=== PATIENT | female | born 1990 | race Hispanic/Latino ===

== ENCOUNTER 2019-05-11 03:02 | Inpatient (IN) | payer OTHER, SELFPAY ==
[2019-05-11] MEDS ORDERED: Ondansetron PF 4 MG/2 ML Vial IVP PRN ×2 (03:39→04:37)
[2019-05-11] MEDS ORDERED: Acetaminophen 500 MG TAB PO PRN (03:39)
[2019-05-11] MEDS ORDERED: hydrALAZINE 20 MG/ML VIAL SLOW IVP PRN ×2 (03:39)
[2019-05-11] MEDS ORDERED: Promethazine HCl 25 MG/ML VIAL IM PRN ×2 (03:39→04:37)
[2019-05-11] MEDS ORDERED: Butorphanol Tartrate 1 MG/ML VIAL SLOW IVP PRN (03:39)
[2019-05-11 03:40] VITALS: BMI 28.9
[2019-05-11 03:57] LABS: Hemoglobin 12.7 g/dL (12.0-16.0); Mean Corpuscular Volume 91.1 fL (78.0-98.0); Mean Platelet Volume 9.1 fL (7.4-10.4); Platelet Count 182 thou/uL (130-400); RBC Distribution Width 18.3 % (11.5-14.5); White Blood Cell (WBC) Count 12.6 thou/uL (4.8-10.8)
[2019-05-11] MEDS ORDERED: Fentanyl 4 mcg/Bup 0.1% Cadd 100 ML ONE (04:01)
[2019-05-11] MEDS ORDERED: NS / Oxytocin 40 units/1000ml 1,000 ML IV PRN (04:25)
[2019-05-11] MEDS ORDERED: Ibuprofen 800 MG TAB PO PRN (04:25)
[2019-05-11] MEDS ORDERED: Lidocaine 1% (PF) 30 ML VIAL SC PRN (04:25)
[2019-05-11] MEDS ORDERED: Lidocaine 1% (PF) 30 ML VIAL ONE (04:28)
[2019-05-11] MEDS ORDERED: NS / Oxytocin 40 units/1000ml 1,000 ML ONE (04:28)
[2019-05-11] MEDS ORDERED: Methylergonovine 0.2 MG/ML VIAL ONE ×2 (04:29→05:25)
[2019-05-11 04:37] LABS: HBSAg Index 0.24 S/CO (0-0.99); Hep B Surf Ag Non-Reactive S/CO (NonReactive)
[2019-05-11] MEDS ORDERED: Acetaminophen 325 MG TAB PO PRN (04:37)
[2019-05-11] MEDS ORDERED: Naloxone HCl 0.4 mg/ml Vial IVP PRN ×2 (04:37)
[2019-05-11] MEDS ORDERED: Lactated Ringer's 500 ML IV PRN (04:37)
[2019-05-11] MEDS ORDERED: ePHEDrine/0.9% NaCl/PF SYRINGE 50 mg/10 ml SLOW IVP PRN (04:37)
[2019-05-11] MEDS ORDERED: diphenhydrAMINE 50 MG/ML VIAL IVP PRN (04:37)
[2019-05-11] MEDS ORDERED: Fentanyl 4 mcg/Bupivacaine 0.1% Cassette 100 ML EPIDURAL SCH (04:45)
[2019-05-11] MEDS ORDERED: Communication Order-Pharmacy FS SCH (04:45)
[2019-05-11] MEDS ORDERED: Misoprostol 200 MCG TAB ONE (05:03)
[2019-05-11] MEDS ORDERED: Tranexamic Acid 1,000 MG/10 ML VIAL ONE (05:05)
[2019-05-11] MEDS ORDERED: Oxytocin 10 UNITS/ML VIAL ONE ×2 (05:24→06:56)
[2019-05-11] MEDS ORDERED: Famotidine/PF 20 mg/2ml Vial ONE (05:25)
[2019-05-11] MEDS ORDERED: Fentanyl 100 MCG/2 ML VIAL ONE ×3 (05:35→18:45)
[2019-05-11] MEDS ORDERED: Meperidine HCl/PF 25 MG/ML VIAL ONE (05:35)
[2019-05-11] MEDS ORDERED: Phenylephrine HCL 10 MG/ML VIAL ONE ×2 (06:08→07:19)
[2019-05-11] MEDS ORDERED: Azithromycin 250 MG TAB PO SCH (06:30)
[2019-05-11 06:31] LABS: Syphilis Antibody Nonreactive (Nonreactive); Syphilis Antibody Index 0.03 S/CO (<1.00 Non-Reactive)
[2019-05-11 06:37] LABS: INR-International Normal Ratio 1.6; Prothrombin Time 18.8 SEC (12.0-14.7)
[2019-05-11 06:38] LABS: PTT 65.2 SEC (22.9-36.1)
[2019-05-11] MEDS ORDERED: Sodium Bicarb 50 MEQ/50 ML VIAL ONE (06:48)
[2019-05-11] MEDS ORDERED: CEFAZOLIN 2 GM in Sodium Chloride 0.9% 100 ML IVPB SCH (07:00)
[2019-05-11] MEDS ORDERED: Calcium Chloride 1 GM/10 ML Abboject SYRINGE ONE ×5 (07:02→09:07)
[2019-05-11] MEDS ORDERED: Phenylephrine 1% Nasal Spray 15 ML BOT ONE (07:18)
[2019-05-11] MEDS ORDERED: Insulin Regular 300 UNITS/3 ML VIAL ONE (07:29)
[2019-05-11 07:33] LABS: D-Dimer Test 12.75 *mcg/mL (0.27-0.43)
[2019-05-11] MEDS ORDERED: Albuterol Sulfate HFA (OR ONLY) ONE (07:37)
[2019-05-11 07:38] LABS: INR-International Normal Ratio 1.5; PTT 43.8 SEC (22.9-36.1); Prothrombin Time 17.8 SEC (12.0-14.7)
[2019-05-11 07:46] LABS: D-Dimer Test 13.66 *mcg/mL (0.27-0.43)
[2019-05-11] MEDS ORDERED: Bupivacaine/Epinephrine 0.25% 30 ML VIAL ONE (08:00)
[2019-05-11] MEDS ORDERED: Rocuronium Bromide 50 MG/5 ML VIAL ONE (08:43)
[2019-05-11] MEDS ORDERED: CEFAZOLIN 1 GM VIAL ONE (08:54)
[2019-05-11 09:11] LABS: INR-International Normal Ratio 1.3; PTT 35.6 SEC (22.9-36.1); Prothrombin Time 16.1 SEC (12.0-14.7)
[2019-05-11] MEDS ORDERED: Azithromycin 500 MG in Sodium Chloride 0.9% 250 ML 250 ML IVPB SCH (09:30)
[2019-05-11 10:24] LABS: INR-International Normal Ratio 0.8; PTT 34.7 SEC (22.9-36.1); Prothrombin Time 10.8 SEC (12.0-14.7)
[2019-05-11 10:27] LABS: #Lymphocytes 0.4 thou/uL (1.20-3.40); #Monocytes 0.3 thou/uL (0.11-0.59); #Neutrophils 1.6 thou/uL (1.40-6.50); %Eosinophils 0.1 % (0.0-10.0); %Lymphocytes 18.5 % (21.0-51.0); %Monocytes 13.8 % (0.0-10.0); %Neutrophils 67.6 % (42.0-75.0); Hemoglobin 8.5 g/dL (12.0-16.0); Mean Corpuscular HGB CONC 33.7 g/dL (32.0-36.0); Mean Corpuscular Hemoglobin 30.8 pg (27.0-31.0); Mean Corpuscular Volume 91.6 fL (78.0-98.0); Mean Platelet Volume 7.3 fL (7.4-10.4); Platelet Count 35 thou/uL (130-400); RBC Distribution Width 13.7 % (11.5-14.5); Red Blood Cell (RBC) Count 2.76 mill/uL (4.20-5.40); White Blood Cell (WBC) Count 2.4 thou/uL (4.8-10.8)
[2019-05-11 10:53] LABS: Platelet Morphology Comment Appears Decreased
--- NOTE | 2019-05-11 10:53 | RAD ---
EXAM: Single view of the abdomen HISTORY: Instrument count. Evaluate for foreign body. COMPARISON: None FINDINGS: Single view of the abdomen shows a nonspecific, nonobstructive bowel gas pattern. A radiopa que marker for a laparoscopic sponges seen in the lower left abdomen. No obvious curvilinear needles are seen. The bones are unremarkable. IMPRESSION: Radio opaque foreign body in the left lower quadrant of the abdomen.
--- NOTE | 2019-05-11 10:55 | PDOC.FPROB ---
FMR OB H&P: HPI - History of Present Illness Chief Complaint: Contractions Indentification: 28 year old at 39.5 wks History of Present Illness: 28 year old at 39.5 wks by 12.6 wk sono presents with contractions. Patient was scheduled for eIOL for TOLAC this AM, but presented in labor. Patient with low lying placenta (1.1 cm from cervical os, but not visualized completely). Patient with one prior C/S for breech presentation. Her first delivery was without complications. Patient counseled extensively on risks of TOLAC, particularly with low lying placenta, on several different occasions. She desired to proceed with TOLAC and was scheduled for IOL as indicated above. Primary Care Physician: JORDAN Khoury FMR OB H&P: Current - Care : 4 Para: 2011 Gestational age: 39.5 wks Due date: 05/13/2019 - OB Labs Blood type: O RH: positive Antibody Screen: negative HIV: negative RPR: negative HepBsAg: negative Rubella: immune Gonorrhea: negative Chlamydia: negative 1 hour gtt: 116 GBS: negative FMR OB H&P: History - Past Medical History PMH: Insignificant - OB History OB History: x1 C/S for breech presentation - ACCOUNTANT BUDGET History ACCOUNTANT BUDGET History: Denies history of STD's or PID - Surgical History Sx History: C/S x1 - Social History Social History: Denies alcohol, tobacco, or drug use - Family History Family History: Insignificant FMR OB H&P: Medications - Current Home Medications: Medication Instructions Recorded Confirmed Type Pnv No.95/Ferrous Fum/Folic AC 1 tab PO DAILY 05/11/19 05/11/19 History [ [place]] Allergies/Adverse Reactions: Allergies Allergy/AdvReac Type Severity Reaction Status Date / Time No Known Allergies Allergy Verified 05/11/19 03:37 FMR OB H&P: ROS - Review of Systems General: denies: fever/chills ENT: denies: nasal congestion, rhinorrhea Cardiovascular: denies: chest pain, edema Respiratory: denies: cough, shortness of breath Gastrointestinal: reports: abdominal pain. denies: vomiting Genitourinary (Female): reports: vaginal bleeding, contractions, vaginal pressure Integumentary: denies: rash, lesions Hematologic/Lymphatic: denies: prolonged or excessive bleeding FMR OB H&P: Vital Signs - Maternal Vital signs: BP Pulse Afebrile - Heart Tones Baseline: 130 Variability: moderate Acceleration: present Deceleration: variable Category: category 2 [place] contractions every: q2-3 min FMR OB H&P: Physical Exam - Physical Exam General: NAD HEENT: EOMI, MMM, grossly normal vision, grossly normal hearing Heart: RRR General: no respiratory distress Abdomen: soft, gravid, non-tender Musculoskeletal: pulses present, FROM in all four extremities Neurological: no tremor, no focal deficit Skin: no rash, capillary refill <2 seconds Lymphatic: no unusual bruising or bleeding Psychiatric: intact recent and remote memory, good judgement and insight - Pelvic Exam SVE: /- FMR OB H&P: Results - Labs Lab results: Laboratory Results - last 24 hr 05/11/19 05/11/19 05/11/19 03:47 03:47 03:47 WBC RBC Hgb Hct MCV MCH MCHC RDW Plt Count MPV Neutrophils % Neutrophils % (Manual) Lymphocytes % Monocytes % Eosinophils % Basophils % Neutrophils # Lymphocytes # Monocytes # Eosinophils # Basophils # PT INR APTT Fibrinogen D-Dimer POC Glucose Syphilis IgG/IgM Ab Nonreactive Hep Bs Antigen Non-Reactive Blood Type O POSITIVE Antibody Screen NEGATIVE Crossmatch See Detail 05/11/19 05/11/19 05/11/19 03:47 05:36 06:17 WBC 12.6 H RBC 4.10 L Hgb 12.7 Hct 37.3 MCV 91.1 MCH 31.0 MCHC 34.0 RDW 18.3 H Plt Count 182 MPV 9.1 Neutrophils % Neutrophils % (Manual) Lymphocytes % Monocytes % Eosinophils % Basophils % Neutrophils # Lymphocytes # Monocytes # Eosinophils # Basophils # PT INR APTT Fibrinogen D-Dimer POC Glucose 279 H Syphilis IgG/IgM Ab Hep Bs Antigen Blood Type O POSITIVE Antibody Screen Crossmatch 05/11/19 05/11/19 05/11/19 06:21 07:02 07:29 WBC RBC Hgb Hct MCV MCH MCHC RDW Plt Count MPV Neutrophils % Neutrophils % (Manual) Lymphocytes % Monocytes % Eosinophils % Basophils % Neutrophils # Lymphocytes # Monocytes # Eosinophils # Basophils # PT 18.8 H 17.8 H INR 1.6 1.5 APTT 65.2 H 43.8 H Fibrinogen 189 L 251 L D-Dimer 12.75 H 13.66 H POC Glucose 294 H Syphilis IgG/IgM Ab Hep Bs Antigen Blood Type Antibody Screen Crossmatch 05/11/19 05/11/19 05/11/19 08:49 10:04 10:04 WBC 2.4 L RBC 2.76 L Hgb 8.5 L Hct 25.2 L MCV 91.6 MCH 30.8 MCHC 33.7 RDW 13.7 Plt Count 35 L MPV 7.3 L Neutrophils % 67.6 Neutrophils % (Manual) Not Reportable Lymphocytes % 18.5 L Monocytes % 13.8 H Eosinophils % 0.1 Basophils % 0.0 Neutrophils # 1.6 Lymphocytes # 0.4 L Monocytes # 0.3 Eosinophils # 0.0 Basophils # 0.0 PT 16.1 H 10.8 L INR 1.3 0.8 APTT 35.6 34.7 Fibrinogen 301 372 D-Dimer POC Glucose Syphilis IgG/IgM Ab Hep Bs Antigen Blood Type Antibody Screen Crossmatch FMR OB H&P: A/P - Problem List (1) Term Current Visit: Yes Status: Acute Code(s): Z34.90 - ENCNTR FOR SUPRVSN OF NORMAL , UNSP, UNSP TRIMESTER (2) Low-lying placenta Current Visit: Yes Status: Acute Code(s): O44.40 - LOW LYING PLACENTA NOS OR WITHOUT HEMORRHAGE, UNSP TRIMESTER (3) Active labor Current Visit: Yes Status: Acute Code(s): SZJ7004 - Disposition: 28 year old at 39.5 wks presents in active labor 1. TIUP in active labor - 1 on presentation to L&D - Admit to L&D - Patient with low lying placenta and previous C/S for breech presentation. She was counseled very extensively on TOLAC and was provided with all risks to include potential for hemorrhage, hysterectomy, and even . Patient decided to go forward with TOLAC and was scheduled for induction this AM, but presented in active labor. - No augmentation at this time - GBS negative - Will notify Hospitalist as they will need to be on board for this high risk delivery; Dr. Khoury spoke with Dr. Ware previously regarding Hospitalist involvement in case. - Category 2 strip; recurrent variables. Low threshold for C/S 2. Low lying placenta - At risk for acrreta given previous C/S - Risks of hemorrhage and even discussed with patient who decided to go forward with TOLAC - Will need PP hemorrhage cart available for delivery 3. Anemia of - Last reported H/H 8.8/26.5 - Uncertain if patient got iron transfusion - Will get H/H - With concern for PPH, will need to have all PPH meds available Dispo: Admit to L&D for expectant management. Discussion: Date/Time: 05/11/19 1053 This H&P was discussed with Dr. Mayfield and Dr. Dunbar who agree with the above documentation and plan. Signature: Halie Redding, DO PGY-3 Addendum - Attending - Attending Attestation Date/Time: 05/11/19 1145 I personally evaluated the patient and discussed the management with Dr. Redding I agree with the History, Examination, Assessment and Plan documented above with any addition or exceptions noted below. 28 yo female at 39.5 wks by 12.6 wk sono presented in active labor. TIFFANY: 05/13/19 Patient reports painful contractions that initially started at 1700 and progressed throughout the night into insole bottom filler hours today. Initially patient denied LOF and VB but when questioned specifically noted some light bleeding with leaking that she attributes to urine. +FM. Request epidural. PCP, laborist, and NICU notified. Vital signs reviewed. Cat 1 that progressed to Cat II due to recurrent varible decels. Admitted at 5 cm. Quickly progressed to 7 cm with some bleeding. After epidural , patient found to be complete. Ctx q 2 mins Labs reviewed. Medical record reviewed. Patient quickly admitted to L&D and progressed to delivery within close to 1 hour. PCP, laborist, and NICU present. 1. sIUP: IOB labs reviewed. NILM 2017 (will need repeat with co-testing in 2020) . 1 hour gtt 116. 3T negative. Declined genetic screening. Flu 10/2018. Tdap 2018. GBS negative. Cephalic. EFW 8lbs. Female. Anatomy and additional sonos reviewed. 2. Low lying placenta: Hx of previa. Now considered low lying. Last sono at 37 wks. [facility] has been following and co-managing. Last prediction of 1.1 cm from os. Report reviewed and measurement is documented as unsure due to positioning. Therefore placenta edge could be within 1 cm region of os or greater than predicted. Will have blood on hold. Patient counseled multiple times by multiple providers, including MFM. Record reviewed. 3. Abruption: Patient presented with vaginal bleeding. FHT progressed to cat II tracing. However, fetus with good reserve. Patient also progressed from 5 to 10 cm very quickly which also benefited fetus. Blood ready. PPH cart in room. NICU notified and present. Laborist notified and present. 4. hx of LTCS for breech presentation: Previously proven pelvis. score 81% to 74%. Patient remained persistent to have TOLAC for this . R/B/A were discussed with multiple providers, M specialist, and hospital staff. Patient continued to request TOLAC. Consents signed. Case was previously discussed with MFM. On imaging available no evidence of accreta spectrum disorder. MFM also felt due to last sono attempt for TOLAC was reasonable. Case was also discussed with laborist earlier this week and agreed to be available. 5. Iron def anemia: Received iron infusion. Has improved. No evidence of anemia on admission labs. 6. hx of SAB x 1 Please see delivery note for further details. [facility]
[2019-05-11] MEDS ORDERED: Acetaminophen 325 MG/10.15 ML UDCUP PO PRN (11:06)
[2019-05-11] MEDS ORDERED: SYSTANE 3.5 GM TUBE EA EYE PRN (11:06)
[2019-05-11] MEDS ORDERED: CCU Electrolyte Replacement 1 EACH IVPB ONE ×2 (11:06→12:54)
[2019-05-11] MEDS ORDERED: Acetaminophen 325 MG Suppository PR PRN (11:06)
[2019-05-11] MEDS ORDERED: Ventilator Sedation Protocol 1 EACH FS SCH (11:15)
[2019-05-11] MEDS ORDERED: Lanolin Ointment 7 GM TUBE TOP PRN (11:22)
[2019-05-11] MEDS ORDERED: Lactated Ringer's 1,000 ML IV SCH (11:30)
[2019-05-11] MEDS ORDERED: Propofol 1,000 MG/100 ML VIAL IV ONE (11:33)
[2019-05-11] MEDS ORDERED: Morphine 4 MG/ML VIAL ONE (11:33)
--- NOTE | 2019-05-11 11:44 | RAD ---
EXAM: Single view of the chest HISTORY: Line placement COMPARISON: None FINDINGS: Single view of the chest shows a normal sized cardiomediastinal silhouette. An endotrachea l tube is seen with its tip approximately 1.5 cm from the yvette. A right IJ central venous catheter seen with its tip in the superior vena cava. There is no evidence of consolidation, mass, o r pleural effusion. The bones are unremarkable. IMPRESSION: Appropriate position of lines and tubes
[2019-05-11 11:51] LABS: Hemoglobin 9.1 g/dL (12.0-16.0); Mean Corpuscular HGB CONC 34.7 g/dL (32.0-36.0); Mean Corpuscular Volume 89.4 fL (78.0-98.0); Mean Platelet Volume 7.9 fL (7.4-10.4); Platelet Count 81 thou/uL (130-400); RBC Distribution Width 13.6 % (11.5-14.5); Red Blood Cell (RBC) Count 2.95 mill/uL (4.20-5.40); White Blood Cell (WBC) Count 2.8 thou/uL (4.8-10.8)
[2019-05-11 11:55] LABS: Actual Bicarbonate (HCO3a) 23.2 mEq/L (22-28); Base Excess (BEa) 1.8 mEq/L (-2.0 to +3.0); Carboxyhemoglobin (COHb) 0.6 gm% (0.0-3.0); Hemoglobin (Hb) 9.5 g/dL (12.0-16.0); O2 Tension (PaO2) 219.3 mmHg (80.0-100.0); Potassium - ABG Lab 3.06 mmol/L (3.70-5.30)
[2019-05-11 11:57] LABS: CO2 Tension 25.6 mmHg (35.0-45.0); Puncture Site LINE; pH, Arterial 7.58 (7.35-7.45)
[2019-05-11 12:10] LABS: ALT (SGPT) 11 U/L (8-55); AST (SGOT) 25 U/L (5-34); Albumin 3.2 g/dL (3.5-5.0); Alkaline Phosphatase 65 U/L (40-150); Anion Gap 14 mmol/L (10-20); BUN (Urea Nitrogen) 6 mg/dL (7.0-18.7); Bilirubin, Total 3.1 mg/dL (0.2-1.2); Calc. Creatinine Clearance 145 mL/min (70-130); Calcium 10.9 mg/dL (7.8-10.44); Carbon Dioxide 25 mmol/L (22-29); Chloride 107 mmol/L (98-107); Estimated GFR-MDRD Greater than 90; Globulin 2.4 g/dL (2.4-3.5); Glucose 120 mg/dL (70-105); Protein, Total 5.6 g/dL (6.0-8.3); Sodium 143 mmol/L (136-145)
--- NOTE | 2019-05-11 12:10 | OP ---
DATE OF PROCEDURE: 05/11/2019 PREOPERATIVE DIAGNOSES: 1. hemorrhage secondary to uterine atony and possible accreta 2. Status post vaginal after . 3. Chorioamnionitis. 4. Second-degree vaginal laceration. POSTOPERATIVE DIAGNOSES: 1. hemorrhage secondary to uterine atony and possible accreta 2. Status post vaginal after . 3. Chorioamnionitis. 4. DIC. 5. Second-degree vaginal laceration, repaired. PROCEDURES PERFORMED: 1. Exploratory laparotomy 2. total abdominal hysterectomy 3. Massive transfusion of blood products CO-SURGEONS Marlyn Dunbar MD and Margaret Webber DO ESTIMATED BLOOD LOSS: QBL 3675 ml at time of delivery Approximately 4000 ml in OR FLUIDS: Nine rounds of the massive transfusion protocol and fluids per Anesthesia. 27 units Packed RBCs 12 units Fresh Frozen Plasma 3 units liquid plasma 5 packs of platelets 8 units Cryopreciptitate ANESTHESIA: General endotracheal. INDICATIONS: The patient arrived to Labor and Delivery in labor and progressed quickly from 7 cm to completely dilated. She was a prior x1 with a known low-lying placenta. She rapidly proceeded to have a vaginal delivery of a vigorous . The amniotic fluid was noted to be foul smelling at the time of delivery. The placenta was delivered by Dr. Mayfield and reported to be mildly adherent. After the patient started having significant bleeding, I was called back for evaluation. Bimanual exam revealed a very boggy uterus with significant amount of clot and bleeding. She received Methergine and tranexamic acid as well as Cytotec and Hemabate. I placed a Bakri balloon and initiated the massive transfusion protocol. After several minutes of apparent hemostasis, the patient started to bleed around the Bakri balloon and the decision was made to take her to the operating room for exploratory laparotomy. This was discussed with the patient' s with verbal consent obtained by Dr. Khoury. DESCRIPTION OF PROCEDURE: The patient was taken to the operating room, where general anesthesia was obtained without difficulty. She was prepared and draped in normal sterile fashion in the dorsal supine position. A vertical incision was made with a scalpel and carried down to the underlying layer of fascia. The fascia was incised in the midline and extended superiorly and inferiorly. The muscles were in the midline and the peritoneum was entered sharply. There was no blood noted in the abdomen at that time, but the uterus appeared large and boggy. Dr. Webber turned her attention to the vagina, where the Bakri balloon was noted to be displaced. It was removed and approximately 2 L of blood came out of the vagina. The Bakri balloon was replaced but the uterus became more atonic and boggy and significant bleeding continued. The decision was made to proceed with a hysterectomy. An O'Alfonso O'Mauricio retractor was placed into the incision and the uterus was exteriorized. The utero-ovarian ligament was clamped and transected and suture ligated with 0 Vicryl and good hemostasis bilaterally. The round ligaments were identified and doubly suture ligated with 0 Vicryl and transected. The anterior leaf of the broad ligament was incised along the bladder reflection to dissect the bladder off the lower uterine segment. The uterine arteries were clamped with Hannah clamps, transected, and suture ligated with 0 Vicryl with good hemostasis. We continued to clamp and suture ligate inferiorly to the point of the nternal cervical os. This area was noted to be very edematous and distorted and very friable. We clamped across and amputated the uterus and closed this with a series of interrupted 0 Monocryl [id number] sutures. Hemostasis was obtained with several more [id number] utures. However, multiple areas of the bed were noted to be oozing. Several sutures were used to try and obtain hemostasis, but ultimately hemostasis was obtained with FloSeal. Given the patient's DIC status, the decision was made to stop there and close the abdomen. The fascia was reapproximated with 0 PDS. The subcutaneous tissue was reapproximated and the skin was closed with judy. Attention was then turned to the vagina for the repair of her vaginal laceration from delivery, which was repaired in a standard fashion. However, during that repair, a significant amount of bleeding started from above. I performed an exam and found there to be a significant amount of active bleeding coming from the cervix and cuff area. I immediately called for Dr. Ware, , and Dr. Webber to return to the OR for further evaluation and management. The decision was made to reopen the abdomen for further evaluation. Please see Dr. Cleveland's note for full details of that portion of the procedure. Job ID: [id number] [facility]
[2019-05-11 12:13] LABS: Band 23 % (5-11); Lymphocytes 33 % (21-51); MDiff Complete? YES; Metamyelocyte 2 % (0-0); Monocytes 11 % (0-10); Neutrophil 31 % (42-75); Platelet Morphology Comment Appears Decreased; Polychromasia SLIGHT = 2-3 cells (100X) (0-2/hpf)
[2019-05-11 12:15] LABS: Potassium 2.9 mmol/L (3.5-5.1)
[2019-05-11] MEDS ORDERED: CCU ELECTROLYTE REPLACEMENT PROTOCOL FS PRN (12:18)
[2019-05-11] MEDS ORDERED: Magnesium Oxide 400 MG TAB PO PRN ×2 (12:18)
[2019-05-11] MEDS ORDERED: Potassium Phosphate 15 MMOL in Sodium Chloride 0.9% 250 ML 250 ML IV PRN (12:18)
[2019-05-11] MEDS ORDERED: Potassium Chloride 20 MEQ TAB PO PRN (12:18)
[2019-05-11] MEDS ORDERED: Magnesium 2 GM/50 ML 2 GM in Premix Bag 1 BAG IVPB PRN (12:18)
[2019-05-11] MEDS ORDERED: PHOS-NAK 1 PKT PACK PO PRN ×2 (12:18)
[2019-05-11] MEDS ORDERED: Potassium Phosphate 12 MMOL in Sodium Chloride 0.9% 250 ML 250 ML IV PRN (12:18)
[2019-05-11] MEDS ORDERED: Potassium Phosphate 9 MMOL in Sodium Chloride 0.9% 100 ML IVPB PRN (12:18)
[2019-05-11] MEDS ORDERED: Potassium Chloride 40 MEQ in Sodium Chloride 0.9% 250 ML 250 ML IVPB PRN (12:18)
[2019-05-11] MEDS: Piperacillin/Tazobactam 3.375 GM in Sodium Chloride 0.9% 100 ML IVPB SCH ×3 (12:25→23:49)
[2019-05-11] MEDS ORDERED: Fentanyl BOLUS 250 ML IVPB PRN (12:27)
[2019-05-11] MEDS ORDERED: Lorazepam 2 MG/ML VIAL SLOW IVP PRN (12:27)
[2019-05-11] MEDS ORDERED: Morphine 2 MG/ML SYRINGE SLOW IVP PRN (12:27)
[2019-05-11] MEDS ORDERED: Propofol BOLUS 1,000 MG/100 ML VIAL IV PRN (12:27)
[2019-05-11] MEDS ORDERED: fentaNYL Citrate/PF 2,000 MCG in Sodium Chloride 0.9% 60 ML IV SCH (12:27)
[2019-05-11] MEDS: Potassium Chloride 40 MEQ in Premix Bag 1 BAG IVPB PRN ×2 (12:33→17:19)
--- NOTE | 2019-05-11 15:39 | OP ---
DATE OF PROCEDURE: 05/11/2019 SUMMARY: I was called emergently to the operating room #5 to assist in management of supracervical hysterectomy vaginal bleeding. The patient is a 28-year-old female who is G4, P2, A1, now P3, who had a successful earlier that morning and had uterine atony with continued vaginal bleeding. She was taken to the operating room by Dr. Marlyn Dunbar, and Dr. Margaret Webber, for the atony and underwent an emergent supracervical hysterectomy. She had apparently been adequately hemostatic during closure of the abdominal incision. Once the patient was being ready to be cleaned from the surgery, she was noted to be having significant vaginal bleeding. Dr. Webber had left prior to this, and Dr. Dunbar was there along with Dr. Reuben Ware, of the OB Hospitalist Service. They were assessing the vaginal bleeding and appeared to be supracervical. I summoned to the OR and upon my arrival, she was having brisk supracervical bleeding from the remnant of the cervical stump. The patient had been in DIC, but there was no evidence of any oozing from her other bandage sites or IV sites, and I felt this was more due to bleeding of the residual cervix. We packed the vagina with Kerlix and then proceeded to re-prep her abdomen. The judy were removed and the abdomen was re-opened as the 0 PDS suture was removed. Upon entry, there was noted significant amount of blood in the pelvis. We placed an O'Alfonso-O'Mauricio retractor, packed the bowel away with two moistened laparotomy towels and folded burrito technique. The remaining of the cervical stump was grasped in the midline with a Laura clamp. We ascertained quickly where the bladder position was and the prior distending it, we placed two Nevaeh clamps medially to the previous pedicle sites to hope to compress the remainder of the uterine and cervical branches of the uterine artery, decreasing some of the pressure head for the vaginal bleeding. Once this was done, the bladder was insufflated with about 120 mL of saline. Its position was ascertained and it was noted to be edematous just from all the recent surgery and state. Then, I dissected the bladder atraumatically both sharply and bluntly off the cervix. We then cut the pedicles, where the clamps had been placed and these were suture tied with Nevaeh suture ties with #1 chromic suture. Then, we took another straight Lozada on each side of remainder of the cardinal ligament complexes and clamping these and transecting and suture ligating these with [address] Dunbar then vaginally examined the patient, where the anterior fornix of the vagina and what appeared to be the margin of the cervix was met, and this was visualized on depression intra-abdominally and this area was marked with the Bovie cautery in the midline of the vagina just below the presumed cervix. This gave us a target site to proceed with removal of the dilated cervix. There continued to be some arterial bleeding on the patient's left side just beneath the pedicle and little somewhat lateral and we isolated that vessel and placed two [id number] stitches of 0 chromic suture there securing the hemostasis. The bladder remain retracted with a moistened laparotomy sponge with Dr. Ware also providing pressure over the serosa, which was bleeding, but was responding to pressure. We continued to work down the remainder of the cervix working and placing the clamps medial to the previous pedicle until the angle of the cervical vaginal junction was reached. This was transected and then suture ligated again with 0 chromic suture. We then placed two Nevaeh clamps across meeting where the proposed margin was delineated with the cautery site and clamped these with two Nevaeh clamps. The remaining of the cervix was then excised with a scalpel and [place] scissors. We then closed the vaginal angles with Nevaeh suture technique of 0 chromic suture. Hemostasis at the angles were secured. An additional intervening [id number] suture of 0 chromic suture was then also placed closing the cuff and hemostasis. There was noted then, the bleeding off the dome of the bladder in the serosa and this was made hemostatic with a running continuous 3-0 chromic suture with SH needle. Once we had completed this, we noted then down just behind the bladder in the vaginal cuff, there was oozing and there was also then identified a small arterial bleeder. This was grasped with a tonsil clamp and a 3-0 chromic suture was placed in simple stitch securing hemostasis there. Generalized oozing was noted in this area, so we placed FloSeal and put pressure over it with a moistened laparotomy sponge. We then proceeded to cystoscopy of the bladder. The bladder had been remaining watertight with it being distended during this procedure portion. The excess fluid had been released. Cystoscopy 70-degree scope was then performed by Dr. Webber. Methylene blue was given IV to the patient . On initial evaluation, the bladder appeared to be watertight. There was some evidence of excretion of methylene blue from the left UO and then some mildly from the right UO. The bladder remained exposed abdominally also. I noticed then there was some very dilute-looking reddish fluid accumulating in the pelvis after the cystoscopy had been ongoing. The bladder appeared distended. We felt that the serosa and mucosa may have torn from the distention of the bladder with a cystoscopy due to the edematous state of the bladder. Dr. Ware inspected this and we found a small, less than a centimeter opening defect on the patient's right posterior bladder surface. I have gotten down to the portion of identifying the bladder mucosal defect. It was noted the edges of the defect in the right posterior portion of the bladder was above the vaginal cuff site was noted. The edges were grasped and the mucosa muscularis closure with 3-0 chromic was carried out along with the serosal closure. It was again tested to be watertight to 200+ mL distention. This was trimmed. There was no other areas of significant active bleeding seen in the pelvis. We reapplied FloSeal just in the vaginal cuff area behind the bladder to aid in hemostasis. The other suture tags were then cut. I then reinspected the pedicles again and they were inadequately hemostatic. I then left the bedside and the abdomen was closed by Dr. Webber and Dr. Ware. Please see their dictation. All 9 cycles of the massive transfusion protocol had been administered during the total case. Job ID: [id number]
[2019-05-11 16:33] LABS: Hemoglobin 8.1 g/dL (12.0-16.0)
[2019-05-11] MEDS ORDERED: Sodium Chloride 0.9% 1,000 ML IV SCH (16:45)
[2019-05-11 16:59] LABS: Potassium 3.3 mmol/L (3.5-5.1)
[2019-05-11 17:00] LABS: Lactic Acid 1.6 mmol/L (0.5-2.2)
[2019-05-11 17:26] LABS: Magnesium 0.9 mg/dL (1.6-2.6)
[2019-05-11] MEDS ORDERED: Magnesium Sulfate 4 GM in Sodium Chloride 0.9% 250 ML 250 ML IVPB SCH (17:45)
[2019-05-11] MEDS: Propofol 1,000 MG/100 ML VIAL IV PRN (18:47)
[2019-05-11] MEDS ORDERED: Acetaminophen 650 MG Suppository PR PRN (20:15)
[2019-05-11] MEDS: Famotidine/PF 20 mg/2ml Vial SLOW IVP SCH (20:26)
--- NOTE | 2019-05-11 21:23 | CON ---
DATE OF CONSULTATION: 05/11/2019 SERVICE: Pulmonary Medicine. REASON FOR CONSULTATION: ICU patient. HISTORY OF PRESENT ILLNESS: The patient is a 28-year-old female with past medical history significant for . She was in her usual state of health when she came to the hospital in labor. There was suspicion of chorio. Either way, she had a vaginal delivery. She had very significant bleeding postop. After losing about 3 L of blood, and multiple maneuvers failed to stem the flow of blood, she was taken back to the operating room for an emergent hysterectomy. She went into DIC. Massive transfusion protocol was initiated. Ultimately, she got 27 units of blood as well as multiple other blood products and calcium. She even got factor 7. Ultimately, she seemed to be stabilizing to some degree. The oozing/bleeding started to slow down. After the surgical intervention, she was tucked in the ICU. She is going to remain on mechanical ventilation tonight. She cannot provide any additional elements of the history currently. PAST MEDICAL HISTORY: None. PAST SURGICAL HISTORY: Emergent hysterectomy. SOCIAL HISTORY: Negative for alcohol, tobacco, or illicit drug use. FAMILY HISTORY: Noncontributory. ALLERGIES: NO KNOWN DRUG ALLERGIES. MEDICATIONS: List of her inpatient medications was reviewed. Multiple updates were made. We initiated sedation protocol. REVIEW OF SYSTEMS: cannot be obtained. PHYSICAL EXAMINATION: VITAL SIGNS: Afebrile, pulse 60, blood pressure 120/60, respirations 14, saturation 98% on 27% FiO2 and a PEEP of 5. GENERAL: The patient is intubated and sedated. HEENT: Normocephalic and atraumatic. Sclerae white. Conjunctivae pink. Oral mucosa is moist without lesions. LUNGS: Good air entry. Crackles and rhonchi are present. No wheezing. No prolonged expiratory phase present. HEART: Normal rate, regular. ABDOMEN: Soft, nontender, nondistended. Bowel sounds are positive. MUSCULOSKELETAL: No cyanosis or clubbing. No pitting in the bilateral lower extremities. NEUROLOGIC: Grossly nonfocal. LABORATORY DATA: WBC 2.8, hemoglobin 9.1, platelets 81,000. They seem to be rebounding. INR is 0.8 and stable. PH 7.58, pCO2 25, PO2 216. Potassium 2.9. Basic metabolic profile is otherwise unremarkable. Calcium 10.9. Liver function studies are negative. Lactate 3.7. IMAGING DATA: Chest x-ray demonstrates endotracheal tube is 1.5 cm above the level of yvette. There is some minimal cephalization present. No acute consolidating changes or infiltrates or effusions are identified. ASSESSMENT: 1. Acute blood loss anemia. 2. Hemorrhagic shock, resolved. 3. hemorrhage, requiring emergent hysterectomy. DISCUSSION AND PLAN: The patient remained on mechanical ventilator overnight. Pulmonary/Critical Care will continue to follow very closely. We will wean sedation in the morning. She will likely tolerate extubation. We are going to trend hemoglobins through time to make sure she stabilizes. Potassium to be replaced. Critical care time: 30 minutes. Job ID: [id number] MTDD
[2019-05-11 21:56] LABS: Bilirubin Small (Negative); Blood, Urine Large (Negative); Glucose, Urine (Dipstick) Negative (Negative); Leukocyte Negative (Negative); Nitrite Negative (Negative); Protein, Urine (Dipstick) 30 mg/dL (Neg-Trace)
[2019-05-11 22:09] LABS: Clarity Cloudy (Clear)
[2019-05-11 22:16] LABS: RBC/HPF Greater than 50 HPF (0-3)
[2019-05-11 22:17] LABS: Bacteria/HPF Rare-Few HPF (None Seen); Squamous Epithelial 0-3 HPF (0-3)
[2019-05-12 01:20] LABS: Hemoglobin 7.5 g/dL (12.0-16.0); Platelet Count 119 thou/uL (130-400)
[2019-05-12 04:42] LABS: Band 62 % (5-11); Lymphocytes 17 % (21-51); MDiff Complete? YES; Mean Corpuscular HGB CONC 34.9 g/dL (32.0-36.0); Mean Corpuscular Hemoglobin 31.5 pg (27.0-31.0); Mean Platelet Volume 7.5 fL (7.4-10.4); Monocytes 3 % (0-10); Neutrophil 18 % (42-75); Platelet Count 114 thou/uL (130-400); Platelet Morphology Comment Appears Decreased; RBC Distribution Width 14.2 % (11.5-14.5); Red Blood Cell (RBC) Count 2.22 mill/uL (4.20-5.40); White Blood Cell (WBC) Count 5.9 thou/uL (4.8-10.8)
[2019-05-12 04:56] LABS: Anion Gap 12 mmol/L (10-20); BUN (Urea Nitrogen) 8 mg/dL (7.0-18.7); Calc. Creatinine Clearance 145 mL/min (70-130); Calcium 8.4 mg/dL (7.8-10.44); Carbon Dioxide 25 mmol/L (22-29); Chloride 110 mmol/L (98-107); Estimated GFR-MDRD Greater than 90; Glucose 107 mg/dL (70-105); Magnesium 1.9 mg/dL (1.6-2.6); Potassium 3.7 mmol/L (3.5-5.1); Sodium 143 mmol/L (136-145)
[2019-05-12] MEDS ORDERED: Lactated Ringer's 1,000 ML IV SCH (06:00)
--- NOTE | 2019-05-12 06:01 | PDOC.EVN ---
Event Note - Event Note Event Note: 5:55 on 05/12 Evaluated patient several times throughout the night. She appeared stable each time. She even opened her eyes and attempted communication. She would nod in response to questions. Patient's BP is 105/60, pulse is 78. Patient currently afebrile; however, she spiked a temp to 102F. Blood cultures and procalcitonin were drawn. Patient currently on Zosyn. Nurse called to notify of downtrending H/H. Hemoglobin 7 from 7.5 last night. Urine output dropped to 20 cc over the last hour, and is now green tinged. Notified Dr. Ware, [employer], due to concerns for continued bleeding. Will bolus 1L NS. Patient may benefit from additional units of blood. Plan to observe patient, obtain coagulation studies, and replace blood/fluids as needed. Continue to monitor urine output. Consider imaging. Of note, patient's procalcitonin was elevated to 2.8 and bands this AM increased from 32 to 62%. Patient may need additional antibiotic coverage. Will discuss with day team. Halie Redding, DO PGY-3
[2019-05-12] MEDS: Propofol 1,000 MG/100 ML VIAL IV PRN (06:29)
[2019-05-12] MEDS: Piperacillin/Tazobactam 3.375 GM in Sodium Chloride 0.9% 100 ML IVPB SCH ×4 (06:29→23:16)
[2019-05-12] MEDS ORDERED: Magnesium 2 GM/50 ML 2 GM in Premix Bag 1 BAG IVPB SCH (08:30)
[2019-05-12 09:19] LABS: INR-International Normal Ratio 1.2; Prothrombin Time 15.1 SEC (12.0-14.7)
[2019-05-12 09:20] LABS: PTT 35.5 SEC (22.9-36.1)
--- NOTE | 2019-05-12 09:50 | PRG ---
DATE OF SERVICE: 05/12/2019 SERVICE: Pulmonary Medicine. INTERVAL HISTORY: The patient did fine overnight without any significant difficulties. She denies any current shortness of breath or chest discomfort. There were no overnight events. Her hemoglobin trickled down a little bit. Otherwise, there has been no interval change to her condition. PHYSICAL EXAMINATION: VITAL SIGNS: Afebrile, pulse 79, blood pressure 108/59, respirations 13, saturation 97% on room air. GENERAL: The patient is awake and alert, in no apparent distress. LUNGS: Decent air entry. There is no prolonged expiratory phase. Dependent crackles are minimal. HEART: Normal rate and regular. ABDOMEN: Soft, nontender, nondistended. Bowel sounds are positive. MUSCULOSKELETAL: No cyanosis or clubbing. No pitting in the bilateral lower extremities. NEUROLOGIC: Grossly nonfocal. LABORATORY DATA: WBC 5.9, hemoglobin 7.0, platelets 114,000 and stable. Band count is 62% on top of 18% neutrophils. INR 0.8. Basic metabolic profile is otherwise unremarkable. Magnesium is 1.9. Procalcitonin 2.8. ASSESSMENT: 1. Hemorrhagic shock, resolved. 2. Acute blood loss anemia, stable. 3. hemorrhage requiring emergent hysterectomy, and massive transfusion protocol. DISCUSSION AND PLAN: I believe her hemoglobin is simply trending down because of hemolysis. We will get a repeat hemoglobin at noon. If she drops below 7, we will provide her with a unit of blood. She will need to return to the OR in a couple of days to remove the foreign body. Pulmonary/Critical Care will continue to follow along very closely. She will need to remain in the ICU tonight. Critical care time: 30 minutes. Job ID: [id number] MTDD
[2019-05-12] MEDS: Famotidine/PF 20 mg/2ml Vial SLOW IVP SCH ×2 (09:54→20:15)
[2019-05-12] MEDS: Prenatal Vitamin 1 TAB PO SCH (09:55)
[2019-05-12] MEDS ORDERED: Acetaminophen 650 MG/20.3 ML UDCUP PO PRN (10:30)
--- NOTE | 2019-05-12 11:01 | PDOC.OBPPN ---
FMR OB PN: Subj - Interval History Hospital Day: 2 Day: 1 Pt is intubated at this time. She is alert and follows commands. She understands my questions and responds yes and know. She is wondering when she will get her tube out. She denies any pain. Reports being comfortable. Nurse reports Urine output decreasing early this morning. She is getting a fluid bolus. She did have a fever overnight. Nurse denies any signs of acute bleed. Reports vitals stable overnight. Chief Complaint: Pt intubated, answers yes no questions Indentification: 28 year old delivered TAGA @ 39.5 FMR OB PN: Obj - Maternal Vital signs: BP: [111/57] HR: [77] RR: [14] Tmax: [99.5] Pox: [94]% on [ventilator] Wt: [ 66.5kg] - Urine output I&O: 05/11/19 05/12/19 05/13/19 06:59 06:59 06:59 Intake Total 2144.5 100 Output Total 3880 130 Balance -1735.5 -30 - Pain Management Intervention: IV medication FMR OB PN: Exam - Physical Exam General: NAD, other (Pt awake and responds to questioning) HEENT: normocephalic and atraumatic, grossly normal vision, grossly normal hearing Neck: supple Heart: RRR, normal S1/S2, no murmurs/rubs/gallops, pulses present, no edema General: no respiratory distress, good air movement Deviation from normal: Some mild rales bilaterally Deviation from normal: Mildly distended Neurological: cranial nerves II through XII intact, sensation to pain,touch and proprioception grossly normal Skin: no rash Lymphatic: no unusual bruising or bleeding, no petechia Deviation from normal: Unable to fully assess - Pelvic Exam : no edema Deviation from normal: No sign of bleeding FMR OB PN: Data - Labs Lab results: Laboratory Results - last 24 hr 05/11/19 05/11/19 05/11/19 03:47 10:04 11:28 WBC RBC Hgb Hct MCV MCH MCHC RDW Plt Count MPV Neutrophils % (Manual) Band Neuts % (Manual) Lymphocytes % (Manual) Monocytes % (Manual) Metamyelocytes % (Man) Neutrophils # Lymphocytes # Plt Morphology Comment Appears Decreased L Polychromasia PT INR APTT Fibrinogen Specimen Type Puncture Site Bicarbonate Actual ABG pH ABG pCO2 ABG pO2 ABG O2 Sat Calc/Mary ABG O2 Content ABG Base Excess ABG Hematocrit ABG Hemoglobin ABG Oxyhemoglobin ABG Carboxyhemoglobin ABG Methemoglobin ABG Deoxyhemoglobin A-a O2 Gradient Ionized Calcium Mode of Support % Minute Volume Mechanical Rate Spontaneous Rate Inspired O2 Tidal Volume Spontaneous Tidal Vol Peak Inspir Pressure Pressure Support PEEP or CPAP Sodium Potassium Chloride Carbon Dioxide Anion Gap BUN Creatinine Estimated GFR (MDRD) Glucose POC Glucose Lactic Acid 3.7 H Calcium Magnesium Total Bilirubin AST ALT Alkaline Phosphatase Serum Total Protein Albumin Globulin Albumin/Globulin Ratio Procalcitonin Urine Color Urine Clarity Urine pH Ur Specific [place] Urine Protein Urine Glucose (UA) Urine Ketones Urine Blood Urine Nitrite Urine Bilirubin Urine Urobilinogen Ur Leukocyte Esterase Urine RBC Urine WBC Ur Squamous Epith Cells Urine Bacteria Hyaline Casts Blood Type O POSITIVE Antibody Screen NEGATIVE Crossmatch See Detail 05/11/19 05/11/19 05/11/19 11:28 11:28 11:33 WBC 2.8 L RBC 2.95 L Hgb 9.1 L Hct 26.4 L MCV 89.4 MCH 31.0 MCHC 34.7 RDW 13.6 Plt Count 81 L MPV 7.9 Neutrophils % (Manual) 31 L Band Neuts % (Manual) 23 H Lymphocytes % (Manual) 33 Monocytes % (Manual) 11 H Metamyelocytes % (Man) 2 H Neutrophils # Not Reportable Lymphocytes # Not Reportable Plt Morphology Comment Appears Decreased L Polychromasia SLIGHT = 2-3 cells PT INR APTT Fibrinogen Specimen Type Puncture Site Bicarbonate Actual ABG pH ABG pCO2 ABG pO2 ABG O2 Sat Calc/Mary ABG O2 Content ABG Base Excess ABG Hematocrit ABG Hemoglobin ABG Oxyhemoglobin ABG Carboxyhemoglobin ABG Methemoglobin ABG Deoxyhemoglobin A-a O2 Gradient Ionized Calcium Mode of Support % Minute Volume Mechanical Rate Spontaneous Rate Inspired O2 Tidal Volume Spontaneous Tidal Vol Peak Inspir Pressure Pressure Support PEEP or CPAP Sodium 143 Potassium 2.9 L* Chloride 107 Carbon Dioxide 25 Anion Gap 14 BUN 6 L Creatinine 0.62 Estimated GFR (MDRD) Greater than 90 Glucose 120 H POC Glucose 128 H Lactic Acid Calcium 10.9 H Magnesium Total Bilirubin 3.1 H AST 25 ALT 11 Alkaline Phosphatase 65 Serum Total Protein 5.6 L Albumin 3.2 L Globulin 2.4 Albumin/Globulin Ratio 1.3 Procalcitonin Urine Color Urine Clarity Urine pH Ur Specific [place] Urine Protein Urine Glucose (UA) Urine Ketones Urine Blood Urine Nitrite Urine Bilirubin Urine Urobilinogen Ur Leukocyte Esterase Urine RBC Urine WBC Ur Squamous Epith Cells Urine Bacteria Hyaline Casts Blood Type Antibody Screen Crossmatch 05/11/19 05/11/19 05/11/19 11:50 16:19 16:19 WBC RBC Hgb Hct MCV MCH MCHC RDW Plt Count MPV Neutrophils % (Manual) Band Neuts % (Manual) Lymphocytes % (Manual) Monocytes % (Manual) Metamyelocytes % (Man) Neutrophils # Lymphocytes # Plt Morphology Comment Polychromasia PT INR APTT Fibrinogen Specimen Type ARTERIAL Puncture Site LINE Bicarbonate Actual 23.2 ABG pH 7.58 H* ABG pCO2 25.6 L* ABG pO2 219.3 H ABG O2 Sat Calc/Mary 99.1 H ABG O2 Content 13.7 L ABG Base Excess 1.8 ABG Hematocrit 28.0 L ABG Hemoglobin 9.5 L ABG Oxyhemoglobin 98.2 H ABG Carboxyhemoglobin 0.6 ABG Methemoglobin 0.30 ABG Deoxyhemoglobin 0.9 A-a O2 Gradient 112.330 H Ionized Calcium 1.20 Mode of Support SIMV % Minute Volume 10.8 Mechanical Rate 11 Spontaneous Rate 13 Inspired O2 51 Tidal Volume 430 Spontaneous Tidal Vol 647 Peak Inspir Pressure 22 Pressure Support 17 PEEP or CPAP 5.0 Sodium 143 Potassium 3.06 L 3.3 L Chloride 104 Carbon Dioxide Anion Gap BUN Creatinine Estimated GFR (MDRD) Glucose POC Glucose Lactic Acid 1.6 Calcium Magnesium 0.9 L* Total Bilirubin AST ALT Alkaline Phosphatase Serum Total Protein Albumin Globulin Albumin/Globulin Ratio Procalcitonin Urine Color Urine Clarity Urine pH Ur Specific [place] Urine Protein Urine Glucose (UA) Urine Ketones Urine Blood Urine Nitrite Urine Bilirubin Urine Urobilinogen Ur Leukocyte Esterase Urine RBC Urine WBC Ur Squamous Epith Cells Urine Bacteria Hyaline Casts Blood Type Antibody Screen Crossmatch 05/11/19 05/11/19 05/11/19 16:19 21:00 21:37 WBC RBC Hgb 8.1 L Hct 22.4 L MCV MCH MCHC RDW Plt Count MPV Neutrophils % (Manual) Band Neuts % (Manual) Lymphocytes % (Manual) Monocytes % (Manual) Metamyelocytes % (Man) Neutrophils # Lymphocytes # Plt Morphology Comment Polychromasia PT INR APTT Fibrinogen Specimen Type Puncture Site Bicarbonate Actual ABG pH ABG pCO2 ABG pO2 ABG O2 Sat Calc/Mary ABG O2 Content ABG Base Excess ABG Hematocrit ABG Hemoglobin ABG Oxyhemoglobin ABG Carboxyhemoglobin ABG Methemoglobin ABG Deoxyhemoglobin A-a O2 Gradient Ionized Calcium Mode of Support % Minute Volume Mechanical Rate Spontaneous Rate Inspired O2 Tidal Volume Spontaneous Tidal Vol Peak Inspir Pressure Pressure Support PEEP or CPAP Sodium Potassium Chloride Carbon Dioxide Anion Gap BUN Creatinine Estimated GFR (MDRD) Glucose POC Glucose Lactic Acid Calcium Magnesium Total Bilirubin AST ALT Alkaline Phosphatase Serum Total Protein Albumin Globulin Albumin/Globulin Ratio Procalcitonin 2.80 Urine Color Light [place] Urine Clarity Cloudy Urine pH 8.0 Ur Specific [place] 1.020 Urine Protein 30 A Urine Glucose (UA) Negative Urine Ketones 15 A Urine Blood Large A Urine Nitrite Negative Urine Bilirubin Small A Urine Urobilinogen 1.0 Ur Leukocyte Esterase Negative Urine RBC Greater than 50 A Urine WBC 4-6 A Ur Squamous Epith Cells 0-3 Urine Bacteria Rare-Few Hyaline Casts 0-3 Blood Type Antibody Screen Crossmatch 05/12/19 05/12/19 05/12/19 01:04 04:21 04:21 WBC 5.9 RBC 2.22 L Hgb 7.5 L 7.0 L Hct 21.2 L 20.0 L MCV 90.0 MCH 31.5 H MCHC 34.9 RDW 14.2 Plt Count 119 L 114 L MPV 7.5 Neutrophils % (Manual) 18 L Band Neuts % (Manual) 62 H Lymphocytes % (Manual) 17 L Monocytes % (Manual) 3 Metamyelocytes % (Man) Neutrophils # Lymphocytes # Plt Morphology Comment Appears Decreased L Polychromasia PT INR APTT Fibrinogen Specimen Type Puncture Site Bicarbonate Actual ABG pH ABG pCO2 ABG pO2 ABG O2 Sat Calc/Mary ABG O2 Content ABG Base Excess ABG Hematocrit ABG Hemoglobin ABG Oxyhemoglobin ABG Carboxyhemoglobin ABG Methemoglobin ABG Deoxyhemoglobin A-a O2 Gradient Ionized Calcium Mode of Support % Minute Volume Mechanical Rate Spontaneous Rate Inspired O2 Tidal Volume Spontaneous Tidal Vol Peak Inspir Pressure Pressure Support PEEP or CPAP Sodium 143 Potassium 3.7 Chloride 110 H Carbon Dioxide 25 Anion Gap 12 BUN 8 Creatinine 0.62 Estimated GFR (MDRD) Greater than 90 Glucose 107 H POC Glucose Lactic Acid Calcium 8.4 Magnesium 1.9 Total Bilirubin AST ALT Alkaline Phosphatase Serum Total Protein Albumin Globulin Albumin/Globulin Ratio Procalcitonin Urine Color Urine Clarity Urine pH Ur Specific [place] Urine Protein Urine Glucose (UA) Urine Ketones Urine Blood Urine Nitrite Urine Bilirubin Urine Urobilinogen Ur Leukocyte Esterase Urine RBC Urine WBC Ur Squamous Epith Cells Urine Bacteria Hyaline Casts Blood Type Antibody Screen Crossmatch 05/12/19 08:56 WBC RBC Hgb Hct MCV MCH MCHC RDW Plt Count MPV Neutrophils % (Manual) Band Neuts % (Manual) Lymphocytes % (Manual) Monocytes % (Manual) Metamyelocytes % (Man) Neutrophils # Lymphocytes # Plt Morphology Comment Polychromasia PT 15.1 H INR 1.2 APTT 35.5 Fibrinogen 502 H Specimen Type Puncture Site Bicarbonate Actual ABG pH ABG pCO2 ABG pO2 ABG O2 Sat Calc/Mary ABG O2 Content ABG Base Excess ABG Hematocrit ABG Hemoglobin ABG Oxyhemoglobin ABG Carboxyhemoglobin ABG Methemoglobin ABG Deoxyhemoglobin A-a O2 Gradient Ionized Calcium Mode of Support % Minute Volume Mechanical Rate Spontaneous Rate Inspired O2 Tidal Volume Spontaneous Tidal Vol Peak Inspir Pressure Pressure Support PEEP or CPAP Sodium Potassium Chloride Carbon Dioxide Anion Gap BUN Creatinine Estimated GFR (MDRD) Glucose POC Glucose Lactic Acid Calcium Magnesium Total Bilirubin AST ALT Alkaline Phosphatase Serum Total Protein Albumin Globulin Albumin/Globulin Ratio Procalcitonin Urine Color Urine Clarity Urine pH Ur Specific [place] Urine Protein Urine Glucose (UA) Urine Ketones Urine Blood Urine Nitrite Urine Bilirubin Urine Urobilinogen Ur Leukocyte Esterase Urine RBC Urine WBC Ur Squamous Epith Cells Urine Bacteria Hyaline Casts Blood Type Antibody Screen Crossmatch - Imaging Imagin/26: Cxray- appropriate positiion of lines of tubes 05/12: Abdomen X-ray: Radioopague Foreign Body in Left lower quadrant. Yesterday when reviewing image at bedside we believed foreign body to be on the top. FMR OB PN: A/P - Problem List (1) Term Current Visit: Yes Status: Acute Code(s): Z34.90 - ENCNTR FOR SUPRVSN OF NORMAL , UNSP, UNSP TRIMESTER (2) Chorioamnionitis Current Visit: Yes Status: Resolved Code(s): O41.1290 - CHORIOAMNIONITIS, UNSP TRIMESTER, NOT APPLICABLE OR UNSP (3) Low-lying placenta Current Visit: Yes Status: Acute Code(s): O44.40 - LOW LYING PLACENTA NOS OR WITHOUT HEMORRHAGE, UNSP TRIMESTER (4) hemorrhage Current Visit: Yes Status: Acute Code(s): O72.1 - OTHER IMMEDIATE HEMORRHAGE (5) DIC (disseminated intravascular coagulation) Current Visit: Yes Status: Acute Code(s): D65 - DISSEMINATED INTRAVASCULAR COAGULATION Disposition: 28 year old at 39.5 wks delivered SIMA Nixon via on 05/11 @ 442. Pt then had PPH and was taken to OR for total hysterectomy. There was a small hole in the bladder that was repaired. Post Day 1 -Pt intubated at this time. She is awake and follow commands -Pt urine output decreased. Will give 1L fluid bolus. -Pt pain well controlled. On sedation and getting morphine IV for pain. -Pulmonology consulted- Dr. Dunbar follow recs -Director Of Community Life consulted- Laborists, follow recs. -There was radioopaque foreign body noted in LLQ. We will repeat abdomen X-ray to make sure it was not on top of the field. Pt may need to go back for ex-lap if still present. -Vital Signs stable PPH -Pt received 9 series of Massive Transfusion Protocol 05/11. -Hgb has dropped to 7.0 this morning. Will possibly transfuse 1uRBC at this time and repeat CBC after. -Pt vital signs stable. -Will continue to monitor Hgb with serial CBC Chorioamnioitis -Pt had fever overnight. Blood and urine cx drawn again. -Blood cx-NGTD -Placent path/cx- NGTD -Zosyn for abx coverage. If patient continues to fever may consider vanc. DIC -Pt had DIC introperatively. Received 9 series of MTP. -Pt Plts increased to 119 today. Remaining stable. -No other signs of bleeding or clotting at this time. Anemia of - Uncertain if patient got iron transfusion Addendum - Attending - Attending Attestation Date/Time: 05/12/19 1511 I personally evaluated the patient and discussed the management with Dr. Shaffer. I agree with the History, Examination, Assessment and Plan documented above with any addition or exceptions noted below. Patient extubated at time of my exam this morning.
[2019-05-12] MEDS ORDERED: Adacel (T-DAP) 0.5 ML SYRINGE IM ONE (11:22)
--- NOTE | 2019-05-12 11:46 | RAD ---
Abdomen one view 05/12/2019 at 11:26 AM HISTORY: Possible foreign body COMPARISON: Previous day FINDINGS: The bowel gas pattern is unremarkable. There are surgical judy in the right lower abdomen/pelvis. The radiopaque foreign body in the left lower quadrant is again seen.
[2019-05-12] MEDS ORDERED: ISOVUE-370 76%-LOCM 1 ML ONE (11:49)
[2019-05-12 12:14] LABS: Hemoglobin 7.3 g/dL (12.0-16.0)
--- NOTE | 2019-05-12 14:45 | PDOC.EVN ---
Event Note - Event Note Event Note: Repeat adominal xray shows opacity in LLQ c/w lap tape. Remains on Zosyn. CT pyelogram/cystogram show no extravisation. Discussed with both Dr. Winston and Isaías. Will obtain consult from Dr. Mccoy.
[2019-05-12 15:37] LABS: Hemoglobin 7.3 g/dL (12.0-16.0); Mean Corpuscular HGB CONC 34.9 g/dL (32.0-36.0); Mean Corpuscular Hemoglobin 31.6 pg (27.0-31.0); Mean Corpuscular Volume 90.6 fL (78.0-98.0); Mean Platelet Volume 8.1 fL (7.4-10.4); Platelet Count 119 thou/uL (130-400); RBC Distribution Width 14.4 % (11.5-14.5); White Blood Cell (WBC) Count 7.4 thou/uL (4.8-10.8)
[2019-05-12] MEDS: Sodium Chloride 0.9% 1,000 ML IV SCH (15:40)
[2019-05-12] MEDS: Morphine 4 MG/ML VIAL IV PRN ×3 (15:54→20:30)
[2019-05-12 15:56] LABS: Band 41 % (5-11); Dohle Bodies SLIGHT; Lymphocytes 20 % (21-51); MDiff Complete? YES; Metamyelocyte 10 % (0-0); Monocytes 5 % (0-10); Myelocyte 1 % (0-0); Neutrophil 23 % (42-75); Nucleated RBC 1 % (0); Platelet Morphology Comment Appears Decreased; Polychromasia SLIGHT = 2-3 cells (100X) (0-2/hpf); Vacuoles SLIGHT
--- NOTE | 2019-05-12 16:15 | CT ---
CT OF THE ABDOMEN AND PELVIS WITH AND WITHOUT CONTRAST: 05/12/19 INDICATION: History of recent with hemorrhage requiring hysterectomy and multiple transfusio ns of blood. Patient also had an injury of the bladder that was previously repaired. There is concer n for possible additional injury to the bladder. FINDINGS: There is bibasilar air space consolidation suspicious for changes of pneumonia, prominent atelectasis or aspiration. There is an epidural catheter overlying the L1 vertebral level which appears to be external to the ep idural canal on image 34 of series 2. There are a few scattered locules of free air within the abdomen consistent with the patient's recent postoperative state. There is moderate distention of the gallbladder with numerous gallstones. The adrenal glands, and spleen appear within normal limits. There is a 9 mm cyst in the pancreatic ta il. There is mild hydronephrosis of both kidneys. There is symmetric bilateral enhancement on the nephrog raphic phase. There is symmetric excretion. The left renal collecting system is completely duplicated . No focal filling defect is evident within the ureters. No extraluminal extravasation seen from the ureters. There is a small amount of hemorrhage seen within the lower posterior aspect of the bladder adjacent to the Michel catheter. This may reflect the patient's prior urinary bladder injury. No extravasation is seen from the bladder on the delayed phase images. A small amount of gas is present within the marisol dder which is likely related to the patient's recent instrumentation. Small locules of the free air i s seen within the left lower quadrant of the abdomen. There is a large heterogeneously but predominantly hyperdense fluid collection with surrounding enhan cing varicosities filling the expected location of the uterus, retrouterine pouch in left lower quadr ant of the abdomen suspicious for a large hematoma. This measures approximately 11 x 8.4 x 9.2 cm. Th ere is some hemorrhage that extends up into the sigmoid mesocolon. There is a retained lap sponge with hemorrhage and gas debris seen in the left lower quadrant measuri ng 9.5 x 4.2 cm. There is a laparotomy wound involving the lower abdominal wall in addition to a Pfannenstiel incision . The rectum and perirectal soft tissues are unremarkable appearing. There are a few dilated loops of small bowel within the left upper quadrant of the abdomen and centra l abdomen. There is a normal appendix in the right lower quadrant. There is some vacuum disc phenomenon seen within the symphysis pubis. No acute osseous abnormality is evident. There is some soft tissue gas within the paravertebral soft tissue. IMPRESSION: 1. No extraluminal leakage of contrast seen from the urinary collecting systems. The left renal collecting system is completely duplicated with the appearance of two separate insertions of the uret ers into the left posterolateral aspect of the bladder. There is a single right renal collecting syst em. There is mild bilateral hydronephrosis which may be related to mass effect from a prominent hemat dave in the lower pelvis and left lower quadrant of the abdomen. No definite active arterial extravasa tion of contrast is grossly evident. There are numerous enlarged varicosities within the lower pelvis and abdomen related to the patient's recent post gravid state. 2. Small amount of hematoma is seen within the lower aspect of the bladder which may reflect rem nant of hemorrhage from the patient's prior known bladder injury. 3. Left lower quadrant retained foreign body suspicious for a lap sponge with hemorrhage, debris and gaseous material within the lap sponge in the left lower quadrant. 4. Findings suspicious for mild postoperative ileus involving loops of small bowel within the ce ntral abdomen. 5. Bibasilar air space consolidation may be related to pneumonia, aspiration or prominent atelec tasis. 6. Small amount of pneumoperitoneum scattered within the abdomen and pelvis is likely postoperat josee in nature. 7. Epidural catheter has been withdrawn from the epidural space and tip of the catheter resides in the right paraspinal musculature. Small amount of gas is present within the paraspinal musculature may be related to attempted infusion or gas from attempted placement of the epidural catheter. Recom mend removal. 8. Cholelithiasis with moderate distention of the gallbladder. 9. Small pancreatic tail cyst. Findings were discussed with Dr. Neely at 2:30 p.m. on 05/12/[address] Shaffer. POS:
[2019-05-13] MEDS: Sodium Chloride 0.9% 1,000 ML IV SCH ×2 (01:44→14:12)
[2019-05-13] MEDS: Morphine 4 MG/ML VIAL IV PRN ×7 (01:49→23:40)
--- NOTE | 2019-05-13 04:32 | PDOC.EVN ---
Event Note - Event Note Event Note: POD#2 Resting, no reported complaints. VS; 109/61, 81, 99.3 Continues on Zosyn. Plan at this time is for Dr. Metz to take back to OR on Wednesday.
[2019-05-13] MEDS: Piperacillin/Tazobactam 3.375 GM in Sodium Chloride 0.9% 100 ML IVPB SCH ×4 (05:00→23:41)
[2019-05-13 05:32] LABS: #Eosinphils 0.1 thou/uL (0.0-0.7); #Lymphocytes 0.9 thou/uL (1.20-3.40); #Monocytes 0.6 thou/uL (0.11-0.59); #Neutrophils 8.3 thou/uL (1.40-6.50); %Basophils 0.1 % (0.0-1.0); %Eosinophils 0.7 % (0.0-10.0); %Lymphocytes 8.7 % (21.0-51.0); %Monocytes 6.3 % (0.0-10.0); %Neutrophils 84.1 % (42.0-75.0); Hemoglobin 7.1 g/dL (12.0-16.0); Mean Corpuscular HGB CONC 34.6 g/dL (32.0-36.0); Mean Corpuscular Hemoglobin 31.6 pg (27.0-31.0); Mean Corpuscular Volume 91.4 fL (78.0-98.0); Mean Platelet Volume 8.2 fL (7.4-10.4); Platelet Count 122 thou/uL (130-400); Red Blood Cell (RBC) Count 2.26 mill/uL (4.20-5.40); White Blood Cell (WBC) Count 9.9 thou/uL (4.8-10.8)
--- NOTE | 2019-05-13 06:41 | PDOC.FPROB ---
FMR OB H&P: Current - OB Labs Blood type: O RH: positive Antibody Screen: negative HIV: negative RPR: negative HepBsAg: negative Rubella: immune Chlamydia: negative 1 hour gtt: 116 FMR OB H&P: Medications - Current Home Medications: Medication Instructions Recorded Confirmed Type Pnv No.95/Ferrous Fum/Folic AC 1 tab PO DAILY 05/11/19 05/11/19 History [ Caplet] Allergies/Adverse Reactions: Allergies Allergy/AdvReac Type Severity Reaction Status Date / Time No Known Allergies Allergy Verified 05/11/19 03:37 FMR OB H&P: Vital Signs - Maternal Vital signs: Vital Signs - First Documented Temp 98.9 F 05/11/19 11:23 FMR OB H&P: Results - Labs Lab results: Laboratory Results - last 24 hr 05/11/19 05/11/19 05/11/19 07:53 08:12 08:44 WBC RBC Hgb Hct MCV MCH MCHC RDW Plt Count MPV Neutrophils % Neutrophils % (Manual) Band Neuts % (Manual) Lymphocytes % Lymphocytes % (Manual) Monocytes % Monocytes % (Manual) Eosinophils % Basophils % Metamyelocytes % (Man) Myelocytes % Neutrophils # Lymphocytes # Monocytes # Eosinophils # Basophils # Nucleated RBCs # (Man) WBC Morphology Dohle Bodies Plt Morphology Comment Polychromasia PT INR APTT Fibrinogen POC Glucose 263 H 268 H 239 H 05/11/19 05/11/19 05/12/19 10:08 10:51 08:56 WBC RBC Hgb Hct MCV MCH MCHC RDW Plt Count MPV Neutrophils % Neutrophils % (Manual) Band Neuts % (Manual) Lymphocytes % Lymphocytes % (Manual) Monocytes % Monocytes % (Manual) Eosinophils % Basophils % Metamyelocytes % (Man) Myelocytes % Neutrophils # Lymphocytes # Monocytes # Eosinophils # Basophils # Nucleated RBCs # (Man) WBC Morphology Dohle Bodies Plt Morphology Comment Polychromasia PT 15.1 H INR 1.2 APTT 35.5 Fibrinogen 502 H POC Glucose 192 H 152 H 05/12/19 05/12/19 05/13/19 12:05 12:05 05:07 WBC 7.4 9.9 RBC 2.30 L 2.26 L Hgb 7.3 L 7.3 L 7.1 L Hct 20.8 L 20.8 L 20.6 L MCV 90.6 91.4 MCH 31.6 H 31.6 H MCHC 34.9 34.6 RDW 14.4 14.0 Plt Count 119 L 122 L MPV 8.1 8.2 Neutrophils % 84.1 H Neutrophils % (Manual) 23 L Band Neuts % (Manual) 41 H Lymphocytes % 8.7 L Lymphocytes % (Manual) 20 L Monocytes % 6.3 Monocytes % (Manual) 5 Eosinophils % 0.7 Basophils % 0.1 Metamyelocytes % (Man) 10 H Myelocytes % 1 H Neutrophils # 8.3 H Lymphocytes # 0.9 L Monocytes # 0.6 H Eosinophils # 0.1 Basophils # 0.0 Nucleated RBCs # (Man) 1 H WBC Morphology SLIGHT Dohle Bodies SLIGHT Plt Morphology Comment Appears Decreased L Polychromasia SLIGHT = 2-3 cells PT INR APTT Fibrinogen POC Glucose FMR OB H&P: A/P Disposition: 28 year old at 39.5 wks delivered VELMAA F via on 05/11 @ 442. Pt then had PPH and was taken to OR for total hysterectomy. There was a small hole in the bladder that was repaired. Post Day 2 - Pt extubated on 05/12/19. She is awake and follow commands. - Pt pain well controlled. - Pulmonology consulted- Dr. Dunbar follow recs - Table Cut Off Saw Operator consulted- Laborists, follow recs. - There was radioopaque foreign body noted in LLQ c/w lap. Plan is to go to OR on 05/14 w/ Dr. Metz. - Vital Signs stable PPH - Pt received 9 series of Massive Transfusion Protocol 05/11. - Hgb 7.1 this AM. Can consider transfusing 1uPRBC. - Pt vital signs stable. - Will continue to monitor Hgb with serial CBC Chorioamnioitis - Pt afebrile for 24hrs. - Blood/urine cx-NGTD - Placent path/cx- NGTD - Zosyn for abx coverage. If patient continues to fever may consider vanc. DIC - Pt had DIC intra-operatively. Received 9 series of MTP. - Pt Plts increased to 119 today. Remaining stable. - No other signs of bleeding or clotting at this time. Anemia of - Uncertain if patient got iron transfusion Discussion: Date/Time: 05/13/19 0637 This H&P was discussed with Dr. Schwarz who agrees with the above documentation and plan.
--- NOTE | 2019-05-13 06:45 | PDOC.PP ---
Post Progress Note Post Day #: 2 Subjective: Patient extubated yesterday. Patient is awake and resting in bed. She endorses pain in abdomen 04/26. Being controlled with morphine which she state does help with the pain. She endorses some pain in the left shoulder. Endorses some lightheaded and dizziness. She has been tolerating liquids. She is asking if she could eat food at this time as she is hungry. Has not begun to ambulate. Nurse reports good urine output, has been mostly clear and some blood tinged. PO intake tolerated: yes Flatus: no Ambulation: no Vital Signs (12 hours) Temp Pulse Ox 05/13/19 04:00 99.5 F 05/13/19 00:00 99.3 F 05/12/19 20:00 99.0 F 100 Weight Weight 63.2 kg Most Recent Monitor Data Heart Rate from ECG 72 NIBP 104/60 NIBP BP-Mean 74 Respiration from ECG 15 SpO2 100 - Physical Examination General: NAD Cardiovascular: no m/r/g, RRR Respiratory: clear to auscultation bilaterally, non-labored breathing Abdominal: + bowel sounds, appropriately TTP Deviation from normal: TTP more in RLQ and LLQ Skin: CS incision dry & intact, no rash Neurological: no gross focal deficits Psychiatric: A&Ox3, normal affect Result Diagrams: 05/13/19 18:09 05/12/19 04:21 Additional Labs: Post Labs Blood Type O POSITIVE 05/11/19 05:36 Hep Bs Antigen Non-Reactive S/CO (NonReactive) 05/11/19 03:47 (1) DIC (disseminated intravascular coagulation) Code(s): D65 - DISSEMINATED INTRAVASCULAR COAGULATION Status: Acute (2) hemorrhage Code(s): O72.1 - OTHER IMMEDIATE HEMORRHAGE Status: Acute (3) Chorioamnionitis Code(s): O41.1290 - CHORIOAMNIONITIS, UNSP TRIMESTER, NOT APPLICABLE OR UNSP Status: Resolved - Assessment/Plan 28 year old at 39.5 wks delivered SIMA Nixon via on 05/11 @ 442. Pt then had PPH and was taken to OR for total hysterectomy. There was a small hole in the bladder that was repaired. Post Day 2 - Pt extubated 05/12 - Pt pain controlled with morphine - Pulmonology consulted- Dr. Dunbar follow recs - Finishing Range Operator consulted- Laborists, follow recs. - There was radio-opaque foreign body noted in LLQ c/w lap. Plan to go to OR on 05/[address] Metz. - Vital Signs stable PPH - Pt received 9 series of Massive Transfusion Protocol 05/11. - Hgb 7.1 - Will transfuse 1uPRBC. - Pt vital signs stable. - Will continue to monitor Hgb with serial CBC Chorioamnioitis - Pt afebrile 24 hrs. - Blood/urine cx-NGTD - Placent path/cx- NGTD - Zosyn for abx coverage. If patient continues to fever may consider vanc. DIC - Pt had DIC introperatively. Received 9 series of MTP. - Pt Plts increased to 122 today. Remaining stable. - No other signs of bleeding or clotting at this time. Anemia of - Uncertain if patient got iron transfusion Case discussed with Dr. Schwarz. Addendum - Attending - Attending Attestation Date/Time: 05/13/191932 I personally evaluated the patient and discussed the management with Dr. Baker. I agree with the History, Examination, Assessment and Plan documented above with any addition or exceptions noted below. We appreciate the OBGYN team for their expertise and care. Retained sponge successfully performed today. Patient continues to improve. Continue care.
[2019-05-13] MEDS: Famotidine/PF 20 mg/2ml Vial SLOW IVP SCH ×2 (08:01→21:03)
[2019-05-13] MEDS: Prenatal Vitamin 1 TAB PO SCH (08:01)
--- NOTE | 2019-05-13 09:28 | PDOC.EVN ---
Event Note - Event Note Event Note: PRINTER'S ASSISTANT PN POD2, s/p Ex lap with post supracervical hysterectomy followed by repeat ex lap with removal of cervix, cysto and repair of cystotomy. S: Pt reports pain improved with PRN Morphine. She denies passing flatus. Denies n/v. Extubated yesterday. O: VSS, afebrile Tmax 99.5 UOP wnl Gen: NAD, able to communicated CV: RRR Resp: unlabored breathing Abd: moderate distension, increased tympany, soft, mild ttp, incision c/d/i with judy, minimal BS throughout Ext: SCDs in place Hbs 7, receiving additional unit today Reviewed imaging with radiologist, per his interpretation entire lap sponge retained. Keep NPO. Plan for ex lap with removal of retained sponge today. Continue CCU care, appreciate assistance. Continue Zosyn. TO OR this PM, planned for 1500
--- NOTE | 2019-05-13 09:44 | PRG ---
DATE OF SERVICE: 05/13/2019 SUBJECTIVE: Afsaneh Morgan is a 28-year-old female, status post massive vaginal bleeding, status post hysterectomy with ensuing evidence of apparently DIC. She is stable this morning. OBJECTIVE: VITAL SIGNS: Pulse 79, blood pressure 130/80, sats 100%, respirations 19. CHEST: No wheezing or crackles. CARDIAC: Normal S1, S2. No gallops. IMPRESSION: 1. Massive hemorrhage, status post hysterectomy. 2. Anemia. 3. Mild thrombocytopenia. I would discontinue the A-line. Continue supportive care and PT. Disposition as per OB. Pulmonary follow while in the ICU. Job ID: [id number]
[2019-05-13] MEDS ORDERED: Lidocaine 1% PF 5 ML VIAL ONE (12:46)
[2019-05-13] MEDS ORDERED: Dexamethasone 20 MG/5 ML VIAL ONE (12:46)
[2019-05-13] MEDS ORDERED: ePHEDrine 50 MG/ML VIAL ONE (12:46)
[2019-05-13] MEDS ORDERED: Rocuronium Bromide 10 MG/ML (10ML VIAL) ONE (12:46)
[2019-05-13] MEDS ORDERED: Ondansetron PF 4 MG/2 ML Vial ONE (12:46)
[2019-05-13] MEDS ORDERED: PROPOFOL 200 MG/20 ML VIAL ONE (12:46)
[2019-05-13] MEDS ORDERED: Glycopyrrolate 0.2 MG/ML 5 ML SYRINGE ONE (12:46)
[2019-05-13] MEDS ORDERED: CEFAZOLIN 2 GM, Admixture Fee 1 EACH in Sodium Chloride 0.9% 100 ML IVPB SCH (13:15)
[2019-05-13] MEDS ORDERED: Fentanyl 100 MCG/2 ML VIAL ONE ×2 (18:14→18:15)
[2019-05-13 18:20] LABS: Hemoglobin 8.2 g/dL (12.0-16.0); Mean Corpuscular HGB CONC 34.6 g/dL (32.0-36.0); Mean Corpuscular Hemoglobin 31.2 pg (27.0-31.0); Mean Platelet Volume 8.4 fL (7.4-10.4); Platelet Count 135 thou/uL (130-400); Red Blood Cell (RBC) Count 2.63 mill/uL (4.20-5.40); White Blood Cell (WBC) Count 11.9 thou/uL (4.8-10.8)
[2019-05-13 18:37] LABS: Band 34 % (5-11); Dohle Bodies SLIGHT; Lymphocytes 11 % (21-51); MDiff Complete? YES; Monocytes 3 % (0-10); Neutrophil 52 % (42-75); Platelet Morphology Comment Appears Adequate; Polychromasia SLIGHT = 2-3 cells (100X) (0-2/hpf); Vacuoles SLIGHT
--- NOTE | 2019-05-13 19:49 | PDOC.OP ---
Operative Note - Operative Note Operative Note: Brief operative Note Pre Op Dx: Retained foreign body after post hysterectomy Post op Dx: Same Procedure: Opening of prior ex-lap, removal of foreign body (laparotomy sponge) , abdominal wash out Surgeon: Margaret Webber DO Corner Cutter Machine Operator: Tom Metz MD UOP: 100 cc IVF: 500 cc Findings: approximately 50 cc of hemoperitoneum noted upon entry, laparotomy sponge in the left upper quadrant removed, pelvic hematoma noted, however, no bleeding seen, hemostasis noted in pelvic cavity. Complications: None Anesthesia: General
[2019-05-13] MEDS ORDERED: Ketorolac Tromethamine 30 MG/ML VIAL IVP PRN (19:53)
[2019-05-13] MEDS ORDERED: PACU-Morphine 4MG/ML VIAL SLOW IVP PRN (19:53)
[2019-05-13] MEDS ORDERED: Promethazine HCl 25 MG/ML VIAL SLOW IVP PRN (19:53)
[2019-05-13] MEDS ORDERED: Ondansetron HCl/PF 4 MG/2 ML Vial IVP PRN (19:53)
[2019-05-13] MEDS ORDERED: Morphine Sulfate 2 MG/ML SYRINGE SLOW IVP PRN (19:53)
[2019-05-13] MEDS ORDERED: HYDROmorphone 2 MG/ML VIAL SLOW IVP PRN (19:53)
[2019-05-13] MEDS ORDERED: Promethazine HCl 25 MG/ML VIAL IM PRN (19:53)
[2019-05-13] MEDS ORDERED: Meperidine HCl/PF 25 MG/ML VIAL SLOW IVP PRN (19:53)
[2019-05-13] MEDS ORDERED: Bisacodyl 10 MG SUPP PR PRN (20:04)
[2019-05-14] MEDS: Sodium Chloride 0.9% 1,000 ML IV SCH ×3 (02:54→16:07)
[2019-05-14] MEDS: Morphine 4 MG/ML VIAL IV PRN ×4 (02:55→21:07)
[2019-05-14] MEDS: Piperacillin/Tazobactam 3.375 GM in Sodium Chloride 0.9% 100 ML IVPB SCH ×2 (04:46→12:03)
--- NOTE | 2019-05-14 06:51 | PDOC.PP ---
Post Progress Note Post Day #: 3 Subjective: Patient resting in bed. Patient states that her pain is 6/10 and that the pain meds have been working. She has tolerated ice chips and some ice but has not eaten anything yet. She has the ferguson in place and has had good urine output. She has not passed flatus yet. She has not been ambulating. PO intake tolerated: yes Flatus: no Ambulation: no Vital Signs (12 hours) Temp Pulse Ox 05/14/19 04:39 100 05/14/19 04:00 98.2 F 05/14/19 00:00 98.5 F 05/13/19 20:20 98.6 F 96 Weight Weight 67 kg Most Recent Monitor Data Heart Rate from ECG 52 NIBP 109/64 NIBP BP-Mean 79 Respiration from ECG 17 SpO2 93 - Physical Examination General: NAD Cardiovascular: no m/r/g, RRR Respiratory: clear to auscultation bilaterally, non-labored breathing Abdominal: + bowel sounds, no distention, appropriately TTP Skin: CS incision dry & intact, no rash Deviation from normal: wound bandage in place Neurological: no gross focal deficits Psychiatric: A&Ox3, normal affect Result Diagrams: 05/13/19 18:09 05/12/19 04:21 Additional Labs: Post Labs Blood Type O POSITIVE 05/11/19 05:36 Hep Bs Antigen Non-Reactive S/CO (NonReactive) 05/11/19 03:47 (1) DIC (disseminated intravascular coagulation) Code(s): D65 - DISSEMINATED INTRAVASCULAR COAGULATION Status: Acute (2) hemorrhage Code(s): O72.1 - OTHER IMMEDIATE HEMORRHAGE Status: Acute (3) Chorioamnionitis Code(s): O41.1290 - CHORIOAMNIONITIS, UNSP TRIMESTER, NOT APPLICABLE OR UNSP Status: Resolved - Assessment/Plan 28 year old at 39.5 wks delivered SIMA Nixon via on 05/11 @ 442. Pt then had PPH and was taken to OR for total hysterectomy. There was a small hole in the bladder that was repaired. Post Day 3 - Pt extubated 05/12 - Pt pain controlled with morphine - Patient has not yet ambulated, tolerated PO or passed flatus; will encourage ambulation today and will advance diet as tolerated. - Pulmonology consulted- Dr. Dunbar follow recs - Aircraft Navigator consulted- Laborists, follow recs. Laparotomy sponge removed in the OR on 05/[address] Naqvi. Patient tolerated procedure well. - Vital Signs stable PPH - Pt received 9 series of Massive Transfusion Protocol 05/11. Additional uPRBC given 05/13. - Pt vital signs stable. - Will continue to monitor Hgb with serial CBC Chorioamnioitis - Pt afebrile 48 hrs. - Blood/urine cx-NGTD - Placent path/cx- NGTD - Zosyn for abx coverage. If patient continues to fever may consider vanc. DIC - Pt had DIC introperatively. Received 9 series of MTP. - Pt Plts increased to 122. Remaining stable. - No other signs of bleeding or clotting at this time. Anemia of - Uncertain if patient got iron transfusion Diet: NPO, will advance as tolerated after patient passes flatus DVT ppx: SCDs Dispo: will transfer out of the ICU, dc pending clinical course Case discussed with Dr. Schwarz. Addendum - Attending - Attending Attestation Date/Time: 05/14/19 3421 I personally evaluated the patient and discussed the management with Dr. Baker. I agree with the History, Examination, Assessment and Plan documented above with any addition or exceptions noted below. Recovering well.
--- NOTE | 2019-05-14 08:58 | PRG ---
DATE OF SERVICE: 05/14/2019 SUBJECTIVE: This morning, awake, alert, and responsive. She is status post laparotomy for removal of foreign body sponge. She is extubated. OBJECTIVE: VITAL SIGNS: Pulse 53, blood pressure 126/48, sats __97%, respiratory rate 21. GENERAL: No distress. No shortness of breath. CHEST: Decreased breath sounds. No wheezing. CARDIAC: Normal S1, S2. No gallops. ABDOMEN: Soft. LABORATORY DATA: H and H are stable. IMPRESSION: Status post massive vaginal bleeding, status post hysterectomy, status post coagulopathy. PLAN: She can be transferred out of the ICU. Pulmonary/Critical Care will follow at a distance. Disposition as per primary care physician. Job ID: [id number] MTDD
[2019-05-14] MEDS: Prenatal Vitamin 1 TAB PO SCH (09:16)
[2019-05-14] MEDS: Famotidine/PF 20 mg/2ml Vial SLOW IVP SCH ×2 (09:16→21:10)
[2019-05-14] MEDS ORDERED: Sodium Chloride 0.9% 10 ML ONE (16:32)
--- NOTE | 2019-05-14 21:12 | PDOC.EVN ---
Event Note - Event Note Event Note: Mrs. Morgan has been complaining of left shoulder pain that she states has been sporadic since 0600 on 05/14/19. After obtaining a shipping packer via the [employer] line, Mrs. Morgan stated the pain was sharp in nature, was isolated to her left shoulder, was relieved by changes in position, warm compresses, and "the pain meds that they gave me earlier". She denies any radiation to her jaw or arm, diaphoresis, nausea, vomiting, changes in vision or increasing headache or shortness of breath. She also admits that she has not had a bowel movement or passed gas in a considerable amount of time, and she has been relatively immobile due to her large number of invasive surgeries. Physical exam did not reveal any new onset murmurs, she had +2 pulses bilaterally at the Radial Arteries, clear breath sounds bilaterally, and pain was illicited on palpation. At this point, the nature of her pain appears to be a combination of GI and musculoskeletal factors, and she was prescribed warm compresses and Mylicon.
[2019-05-14] MEDS: Simethicone Chewable 80 MG TAB PO PRN (21:13)
[2019-05-15] MEDS ORDERED: Sodium Chloride 0.9% 10 ML ONE (01:48)
[2019-05-15] MEDS: Morphine 4 MG/ML VIAL IV PRN ×2 (01:53→06:00)
[2019-05-15] MEDS: Sodium Chloride 0.9% 1,000 ML IV SCH ×3 (01:57→19:05)
[2019-05-15 04:15] LABS: #Eosinphils 0.1 thou/uL (0.0-0.7); #Lymphocytes 1.4 thou/uL (1.20-3.40); #Monocytes 0.8 thou/uL (0.11-0.59); #Neutrophils 6.2 thou/uL (1.40-6.50); %Basophils 0.1 % (0.0-1.0); %Eosinophils 0.8 % (0.0-10.0); %Lymphocytes 16.3 % (21.0-51.0); %Monocytes 9.9 % (0.0-10.0); Hemoglobin 8.5 g/dL (12.0-16.0); Mean Corpuscular HGB CONC 34.9 g/dL (32.0-36.0); Mean Corpuscular Hemoglobin 31.3 pg (27.0-31.0); Mean Corpuscular Volume 89.6 fL (78.0-98.0); Mean Platelet Volume 8.1 fL (7.4-10.4); Platelet Count 155 thou/uL (130-400); RBC Distribution Width 13.8 % (11.5-14.5); Red Blood Cell (RBC) Count 2.72 mill/uL (4.20-5.40); White Blood Cell (WBC) Count 8.5 thou/uL (4.8-10.8)
--- NOTE | 2019-05-15 05:54 | PDOC.PP ---
Post Progress Note Post Day #: 4 Subjective: Patient states her pain is a 5/10 in intensity and located in her lower abdomen. She states she has passed some gas, but denies any BM. She states she has not moved around much, because of the urinary catheter and IV attachments. She has been able to tolerate drinking some gatorade and eating a few bites of food. she denies any nausea or vomiting. Patient had an episode of bradycardia of HR in 40-50's at 2100 last night and chest pain at 2130 last night that is now resolved. Her HR is in the 90's this morning. Vital signs stable at this time. PO intake tolerated: yes Flatus: yes Ambulation: no Vital Signs (12 hours) Temp Pulse Resp BP BP Pulse Ox 05/15/19 04:10 98.6 F 59 L 16 117/54 L 94 L 05/15/19 03:00 60 94 L 05/15/19 02:00 51 L 95 05/15/19 00:00 98.5 F 61 20 110/58 L 96 05/14/19 23:01 55 L 95 05/14/19 21:05 60 95 05/14/19 20:10 98.4 F 53 L 16 140/68 95 05/14/19 19:00 60 94 L Weight Weight 67 kg Most Recent Monitor Data Heart Rate from ECG 46 NIBP 111/68 NIBP BP-Mean 82 Respiration from ECG 16 SpO2 93 - Physical Examination General: NAD Cardiovascular: RRR Deviation from normal: 2/6 Holosystolic murmur auscultated loudest right 2nd intercostal space Respiratory: clear to auscultation bilaterally (Bronchial breath sounds), non- labored breathing Abdominal: + bowel sounds, no distention Deviation from normal: Tender to palpation of lower abdomen Extremities: negative homans (B) Skin: CS incision dry & intact (judy present from umbilicus to suprapubic area.) Neurological: no gross focal deficits Psychiatric: A&Ox3, normal affect Result Diagrams: 05/15/19 04:12 05/12/19 04:21 Additional Labs: Post Labs Blood Type O POSITIVE 05/11/19 05:36 Hep Bs Antigen Non-Reactive S/CO (NonReactive) 05/11/19 03:47 Hgb: 8.5 Hct: 24.3 (1) DIC (disseminated intravascular coagulation) Code(s): D65 - DISSEMINATED INTRAVASCULAR COAGULATION Status: Acute (2) Low-lying placenta Code(s): O44.40 - LOW LYING PLACENTA NOS OR WITHOUT HEMORRHAGE, UNSP TRIMESTER Status: Resolved (3) hemorrhage Code(s): O72.1 - OTHER IMMEDIATE HEMORRHAGE Status: Resolved Qualifiers: hemorrhage type: coagulation defects Qualified Code(s): O72.3 - coagulation defects (4) Term Code(s): Z34.90 - ENCNTR FOR SUPRVSN OF NORMAL , UNSP, UNSP TRIMESTER Status: Resolved (5) Chorioamnionitis Code(s): O41.1290 - CHORIOAMNIONITIS, UNSP TRIMESTER, NOT APPLICABLE OR UNSP Status: Resolved Qualifiers: Fetus number: single or unspecified fetus - Assessment/Plan 28 year old at 39.5 wks delivered SIMA F via on 05/11 @ 0442. Pt then had PPH and was taken to OR for total hysterectomy. There was a small hole in the bladder that was repaired. Patient was taken back to the OR on 05/13 for retained surgical laparotomy rag that was then removed. 1. Post Day 4 - Pt extubated 05/12 - Pt pain controlled with morphine, consider switching to Tylenol, and [place] today if pt can tolerate PO. - Patient has not yet ambulated. Tolerated PO fluids and passed flatus overnight ; will encourage more ambulation today and will advance diet as tolerated. - Pulmonology consulted- Dr. Dunbar follow recs - Peel Oven Tender consulted- Laborists, follow recs. Laparotomy sponge removed in the OR on 05/[address] Webber and Isaías. Patient tolerated procedure well. - Vital Signs stable - X7 days total of urinary catheter to be discontinued on 05/18, per recs from urology. 2. PPH - Pt received 9 series of Massive Transfusion Protocol 05/11. Additional uPRBC given 05/13. - Pt vital signs stable. - Will continue to monitor Hgb with serial CBC - Hgb 8.5 and Hct 24.3 on 05/15. 3. Chorioamnioitis - Pt afebrile 48 hrs. - Blood/urine cx-NGTD - Placent path/cx- NGTD - Zosyn discontinued 4. DIC - Pt had DIC introperatively. Received 9 series of MTP. - Pt Plts increased to 122. Remaining stable. - No other signs of bleeding or clotting at this time. 5. Anemia of - Uncertain if patient got iron transfusion Diet: NPO, will advance as tolerated since patient passed flatus DVT ppx: SCDs Dispo: pt transferred to post- from the ICU, dc pending clinical course Addendum - Attending - Attending Attestation Date/Time: 05/15/19 7121 I personally evaluated the patient and discussed the management with Dr. Latham I agree with the History, Examination, Assessment and Plan documented above with any addition or exceptions noted below - Patient sitting up in chair. Tolerating clears. Afebrile VSS A/P: 1) PPD #4 s/p complicated by massive PPH requiring hystectomy and re-exploration/transfusion- (+) small amount flatus - continue clears and bowel regiment. Encouraged ambulation. 2) Blood loss anemia- stable 3) Bladder injury - continue ferguson for 7-10 days as per FACING CUTTING MACHINE OPERATOR
[2019-05-15] MEDS ORDERED: Bisacodyl 10 MG SUPP PR SCH (08:45)
--- NOTE | 2019-05-15 09:11 | PDOC.EVN ---
Event Note - Event Note Event Note: OB PP Note Evaluated pt this AM. Pain controlled with PRN meds. Reports some light flatus. Minimal vaginal bleeding. UOP wnl. VSS Gen: NAD CV: RRR Resp: Unlabored Abd: Soft, increased tympany, incision c/d/i, +BS x4 Ext: Neg homans, trace edema. Labs stable, Hbg 8.5 Continue PP care Encouraged ambulation and laxatives to encourage bowel mvmt. Michel to remain in place for 7-10 days post op. Will evaluate possible removal POD #7 Questions answered and all procedures reviewed with pt in detail
[2019-05-15] MEDS: Prenatal Vitamin 1 TAB PO SCH (09:26)
[2019-05-15] MEDS: Famotidine/PF 20 mg/2ml Vial SLOW IVP SCH ×2 (09:26→21:47)
[2019-05-15] MEDS: Simethicone Chewable 80 MG TAB PO PRN ×2 (09:26→19:04)
[2019-05-15] MEDS: HYDROcodone/Acetaminophen 5/325 mg Tablet PO PRN ×4 (10:14→23:30)
--- NOTE | 2019-05-15 10:42 | OP ---
DATE OF PROCEDURE: 05/13/2019 THIS IS A REPEAT DICTATION THE ORIGINAL OPERATIVE REPORT FROM 05/13/2019 DID NOT SAVE. THE ORIGINAL DICTATION NUMBER IF YOU CAN FIND IT WOULD BE GREAT. I DO NOT KNOW IF YOU ARE ALL ABLE TO DO THAT WHERE THE ORIGINAL DICTATION NUMBER WAS [id number]. PREOPERATIVE DIAGNOSES: 1. Status post total abdominal hysterectomy due to massive hemorrhage. 2. Retained foreign body (suspected to be a laparotomy sponge). POSTOPERATIVE DIAGNOSES: 1. Status post total abdominal hysterectomy due to massive hemorrhage. 2. Retained foreign body (laparotomy sponge). PROCEDURES PERFORMED: 1. Opening of prior exploratory laparotomy incision. 2. Removal of the foreign body (laparotomy sponge). 3. Abdominal washout. BPO SPECIALIST: Tom Metz MD. URINARY OUTPUT: 100 mL. IV FLUIDS: 500 mL. ESTIMATED BLOOD LOSS: Minimal with this procedure. FINDINGS: Approximately 50 mL of hemoperitoneum noted upon entry into the abdomen. The laparotomy sponge was located in the left upper quadrant, which was removed. There was a pelvic retroperitoneal hematoma, primarily on the left aspect, which is probably 8 to 10 cm in length. However, this was hemostatic and there was no areas of active bleeding. COMPLICATIONS: None. ANESTHESIA: General. INDICATIONS FOR PROCEDURE: Ms. Afsaneh Morgan is a 28-year-old, G3, P3, who had an emergent supracervical hysterectomy followed by reoperation with removal of the remaining cervix due to massive hemorrhage. She had undergone massive transfusion protocol with 9 series. The patient was previously in DIC during her prior operation. She then had a retained laparotomy sponge, which was noted on postoperative day #1. Therefore, today she is undergoing a repeat operation for removal of the retained laparotomy sponge and at this time, she is no longer in DIC. She was extubated and had stabilized. PROCEDURE IN DETAIL: The patient was brought to the operating room. She was placed under general anesthesia. She received Ancef for surgical prophylaxis and was previously on Zosyn. Her abdomen was prepped and draped in the sterile fashion. An official time-out was performed. The previous judy were removed. The underlying suture along the fascia was then incised and removed. In the entrance into the abdominal cavity, there was noted to be about 50 mL of hemoperitoneum present. This was irrigated and suctioned. Exploration of the abdomen was done and the retained laparotomy sponge was found in the left upper quadrant. This was removed. It was mildly adhered to the bowel, however, it was easily removed without any injury to the small bowel. The pelvis was evaluated noting the retroperitoneal hematoma, which was known prior to this operation. The pelvis and abdomen were thoroughly irrigated with warm saline. At this time, the fascia was closed in a running fashion using looped 0 PDS and the subcutaneous layer was copiously irrigated and hemostatic. The skin was closed using judy. The patient was then extubated without difficulty and transferred back to the critical care unit. All counts were correct x3. There were no complications with this procedure. Job ID: [id number]
--- NOTE | 2019-05-15 12:28 | OP ---
DATE OF PROCEDURE: PREOPERATIVE DIAGNOSES: 1. Status post an emergent exploratory laparotomy, which proceeded to have a total abdominal hysterectomy and repair of incidental cystotomy with massive transfusion protocol for emergent post hrmorrhage presumed due to uterine atony and possible placental accreta. 2. Retained foreign body, presumed to be a laparotomy sponge. POSTOPERATIVE DIAGNOSES: 1. Status post an emergent exploratory laparotomy, which proceeded to have a total abdominal hysterectomy and repair of incidental cystotomy with massive transfusion protocol for emergent post hrmorrhage presumed due to uterine atony and possible placental accreta. 2. Retained foreign body, presumed to be a laparotomy sponge. PROCEDURE: 1. Repeat exploratory laparotomy with reopening of the prior incision. 2. Removal of foreign body (laparotomy sponge x1). 3. Abdominal washout. SURGEON: Margaret Webber DO. RETAIL ACCOUNT SPECIALIST: Tom Metz MD. URINARY OUTPUT: 100 mL. IV FLUIDS: 500 mL. ESTIMATED BLOOD LOSS: No EBL during this procedure. However, there was approximately 50 mL of hemoperitoneum from the previous procedure, which was noted and cleared with the abdominal washout. FINDINGS: Approximately 50 mL of hemoperitoneum noted upon entry, laparotomy sponge found within the left upper quadrant of the abdomen which was removed. A pelvic retroperitoneal hematoma noted. However, there was no bleeding from the site. Hemostasis was noted within the pelvic cavity. The retroperitoneum hematoma was approximately 8 cm in length based on palpation. COMPLICATIONS: None. ANESTHESIA: General. INDICATIONS FOR THE PROCEDURE: Ms. Afsaneh Morgan is a 28-year-old who is postoperative day #2 status post an emergent exploratory laparotomy for hemorrhage followed by a total abdominal hysterectomy due to uterine atony and presumed placenta accreta. Patient had been on massive transfusion protocol, receiving a total of 9 series. She also had an incidental cystotomy repair during the procedure. Patient has been in critical care, however, has been extubated and recovering. On her postoperative x-ray, it was noted that there was a retained laparotomy sponge that required removal. There was an additional x-ray done to confirm that there in fact was a sponge contained. The patient was counseled regarding the findings and consented for an exploratory laparotomy with removal of the retained laparotomy sponge and any other indicated procedures. PROCEDURE IN DETAIL: The patient was brought to the operating room and she was placed under general anesthesia. The patient was placed supine position. She was prepped and draped in sterile fashion. She already had a Michel in place. An official time-out was performed. She was given Ancef for surgical prophylaxis. The judy from the previous incision were removed. The PDS from the fascial closure was cut and removed. The abdominal cavity was then entered. There was a hemoperitoneum noted upon entry, which was cleared. The abdomen was explored and there was a sponge that was found in the left upper quadrant of the abdomen. The sponge was noted to be along the bowel, however, was easily removed. The bowel was then placed back into the abdomen. The abdomen and pelvis were irrigated and cleared of all clot and debris. The pelvis was evaluated noting that there was a retroperitoneal hematoma on the left aspect. However, this is only palpated and no additional procedure was performed as it was hemostatic. The fascia was then closed in a running fashion using looped 0 PDS usinga mass closure technique. The subcutaneous layer was copiously irrigated and hemostatic. The skin was closed using judy , abdominal pressure dressing was placed. All counts were correct x3 (including the removed laparotomy sponge). There were no complications. The patient was extubated and returned to critical care unit. Job ID: [id number] [facility]
--- NOTE | 2019-05-15 13:50 | OP ---
DATE OF PROCEDURE: 05/11/2019 DELIVERING PHYSICIAN: Halie Redding DO ATTENDING PHYSICIAN: Abimbola Mayfield MD PROCEDURE PERFORMED: Spontaneous vaginal delivery. ANESTHESIA: Epidural. QBL: 3670 mL. PREOPERATIVE DIAGNOSES: 1. Term intrauterine in active labor. 2. Low-lying placenta with last documented ultrasound with placenta 1.1 cm from os. 3. The patient strongly desires to try a trial of labor after delivery with extensive discussions regarding the risks of trial of labor after delivery. 4. Anemia of , status post iron transfusion. 5. History of low-transverse section for breech presentation. POSTOPERATIVE DIAGNOSES: 1. Term intrauterine , delivered. 2. hemorrhage with massive transfusion protocol initiated. 3. DIC. 4. Occult placenta accreta. 5. Low-lying placenta with last documented ultrasound with placenta 1.1 cm from os. 6. The patient strongly desires to try a trial of labor after delivery with extensive discussions regarding the risks of trial of labor after delivery. 7. Anemia of , status post iron transfusion. 8. History of low-transverse section for breech presentation. INDICATIONS: This is a 28-year-old G4, P2-0-1-2 at 39.5 weeks, delivered a viable female infant at 04:42 a.m. on 05/11 via spontaneous vaginal delivery. The patient was scheduled for a TOLAC induction of labor later in the morning. However, she came in, in active labor and progressed from 5 cm to 10 cm in a matter of 45 minutes. DESCRIPTION OF PROCEDURE: Patient was able to get an epidural. A vigorous female was delivered over an intact perineum in the occipitoanterior position. The infant was covered in yodit pus and the mother was noted to have chorioamnionitis with unknown timing of rupture of membranes. She did remain afebrile. Anterior shoulder and remainder of the body was delivered. Nuchal cord x1 reduced. The head was held down and mouth and nares were bulb suctioned. Cord was clamped and cut and cord blood was collected. The placenta did not deliver in 20 minutes and upon checking the placenta, it did appear to be adhered to the uterine wall. At this point, the attending physician, Dr. Mayfield took over and manual removal of the placenta was initiated. The placenta did initially break away from the uterine wall with ease. However, it did require removal in multiple pieces. A significant amount of blood loss was noted during this time. During this process, the patient lost approximately 3 L of blood in a very short period of time. All hemorrhage medications were given at onset of bleeding to include Hemabate, Methergine, and Cytotec. Massive transfusion protocol was also initiated in a very timely manner. Dr. Dunbar, hospitalist was present during this time. It was uncertain whether or not there was still retained products of conception as the bleeding continued. A Bakri balloon was placed, which did allow for hemostasis for a period of time. The on-call AIR BRAKE ADJUSTER was called and the [facility]. During this time, she had a laparotomy performed and no bleeding was noted from the abdomen. Upon removal of the Bakri balloon, the uterine bleeding persisted and it was decided to proceed with a hysterectomy. At this time, the patient was also noted to be in DIC, which contributed to the ongoing blood loss. Upon finishing the hysterectomy, Dr. Dunbar did go to repair a second-degree laceration from the delivery and noted that there was still an extensive amount of vaginal bleeding. The AIR BRAKE ADJUSTER's on board then went back and removed additional lower segment of the uterus as well as the entirety of the cervix. During this time, a bladder injury was noted and repaired and a Michel was placed. The patient was then taken to the ICU for further recovery. Her vital signs were noted to be stable and the patient was off pressors in the ICU. She did remain intubated for recovery purposes. Please refer to the additional operative notes for full details regarding the additional operations. went to nursery in good condition. Due to the chorio and yodit pus surrounding the infant, which required three washes of the to get all of the yodit infection removed, the patient was started on IV antibiotics to include Ampicillin and gentamicin. Blood cultures and CBC were also drawn. Apgars were 8 and 9 at 1 and 5 minutes respectively. did not require any resuscitation. Again, please see additional operative notes and event notes for further discussion regarding the patient's care after vaginal delivery. Job ID: [id number] [facility]
[2019-05-15] MEDS: Senokot S 8.6-50 MG TAB PO SCH (21:46)
[2019-05-16] MEDS: HYDROcodone/Acetaminophen 5/325 mg Tablet PO PRN ×5 (04:20→21:05)
[2019-05-16] MEDS: Sodium Chloride 0.9% 1,000 ML IV SCH ×2 (04:22→13:04)
[2019-05-16 06:16] LABS: ALT (SGPT) 8 U/L (8-55); AST (SGOT) 14 U/L (5-34); Albumin 2.6 g/dL (3.5-5.0); Alkaline Phosphatase 96 U/L (40-150); Anion Gap 10 mmol/L (10-20); BUN (Urea Nitrogen) 7 mg/dL (7.0-18.7); Bilirubin, Total 0.5 mg/dL (0.2-1.2); Calc. Creatinine Clearance 171 mL/min (70-130); Calcium 8.2 mg/dL (7.8-10.44); Carbon Dioxide 22 mmol/L (22-29); Chloride 110 mmol/L (98-107); Estimated GFR-MDRD Greater than 90; Globulin 2.5 g/dL (2.4-3.5); Glucose 92 mg/dL (70-105); Protein, Total 5.1 g/dL (6.0-8.3); Sodium 139 mmol/L (136-145)
[2019-05-16 06:17] LABS: Band 6 % (5-11); Eosinophils 1 % (0-10); Hemoglobin 9.1 g/dL (12.0-16.0); Lymphocytes 17 % (21-51); MDiff Complete? YES; Mean Corpuscular Hemoglobin 30.8 pg (27.0-31.0); Mean Corpuscular Volume 90.6 fL (78.0-98.0); Metamyelocyte 3 % (0-0); Monocytes 12 % (0-10); Neutrophil 61 % (42-75); Platelet Count 201 thou/uL (130-400); Platelet Morphology Comment Appears Adequate; RBC Distribution Width 13.6 % (11.5-14.5); Red Blood Cell (RBC) Count 2.94 mill/uL (4.20-5.40); White Blood Cell (WBC) Count 7.4 thou/uL (4.8-10.8)
[2019-05-16 06:20] LABS: Potassium 2.9 mmol/L (3.5-5.1)
[2019-05-16] MEDS ORDERED: Potassium Chloride 20 MEQ TAB PO SCH ×2 (06:30→13:00)
--- NOTE | 2019-05-16 07:02 | PDOC.PP ---
Post Progress Note Post Day #: 5 Subjective: Patient reports abdominal pain of a 4/10 this morning. She states the pain medication is controlling her pain well. She had X2 small bowel movements, one yesterday evening (05/15), and one this morning at 0200 (05/16). She also reports flatus. Patient walked up and down the hallway a few times yesterday and voices she will try this again more today, to build up to going home. Patient tolerated full liquids well yesterday, and states she feels like she could eat more today. PO intake tolerated: yes Flatus: yes Ambulation: yes Vital Signs (12 hours) Temp Pulse Resp BP BP BP Pulse Ox 05/16/19 04:15 98.1 F 58 L 18 115/66 96 05/16/19 01:40 98.3 F 76 58 H 119/70 97 05/16/19 00:00 98.1 F 61 16 121/61 97 05/15/19 22:00 98.3 F 62 20 118/59 L 99 05/15/19 20:00 98.1 F 53 L 22 H 115/59 L 99 Weight Weight 67 kg Most Recent Monitor Data Heart Rate from ECG 46 NIBP 111/68 NIBP BP-Mean 82 Respiration from ECG 16 SpO2 93 - Physical Examination General: NAD Cardiovascular: no m/r/g, RRR Respiratory: clear to auscultation bilaterally, non-labored breathing Abdominal: + bowel sounds, lochia (minimal), appropriately TTP Deviation from normal: Slightly distended and tender over lower abdomen. Surgical stables present. Extremities: negative homans (B) Skin: CS incision dry & intact, no rash Neurological: no gross focal deficits Psychiatric: A&Ox3, normal affect Result Diagrams: 05/16/19 05:06 05/16/19 05:06 Additional Labs: Post Labs Blood Type O POSITIVE 05/11/19 05:36 Hep Bs Antigen Non-Reactive S/CO (NonReactive) 05/11/19 03:47 (1) DIC (disseminated intravascular coagulation) Code(s): D65 - DISSEMINATED INTRAVASCULAR COAGULATION Status: Acute (2) Low-lying placenta Code(s): O44.40 - LOW LYING PLACENTA NOS OR WITHOUT HEMORRHAGE, UNSP TRIMESTER Status: Resolved (3) hemorrhage Code(s): O72.1 - OTHER IMMEDIATE HEMORRHAGE Status: Resolved Qualifiers: hemorrhage type: coagulation defects Qualified Code(s): O72.3 - coagulation defects (4) Term Code(s): Z34.90 - ENCNTR FOR SUPRVSN OF NORMAL , UNSP, UNSP TRIMESTER Status: Resolved (5) Chorioamnionitis Code(s): O41.1290 - CHORIOAMNIONITIS, UNSP TRIMESTER, NOT APPLICABLE OR UNSP Status: Resolved Qualifiers: Fetus number: single or unspecified fetus (6) Acute blood loss anemia Code(s): D62 - ACUTE POSTHEMORRHAGIC ANEMIA Status: Acute - Assessment/Plan 28 year old at 39.5 wks delivered SIMA Nixon via on 05/11 @ 0442. Pt then had massive PPH and was taken to OR for total hysterectomy after failing medication and Bakri management. There was a small hole in the bladder that was repaired. Patient was taken back to the OR on 05/13 for retained surgical laparotomy rag that was then removed. Patient was intubated in the ICU. She is now in care, extubated and recovering appropriately. 1. Post Day 5 - Pt pain controlled with [place] and Tylenol - Patient tolerated PO full liquids, and Po pain medications throughout 05/15 and 05/16 morning. - Patient ambulated hallways 05/15 - Pulmonology consulted- Dr. Dunbar follow recs, Pt extubated 05/12 - Shuttle Route Vehicle Operator consulted- Laborists, follow recs. Laparotomy sponge removed in the OR on 05/[address] Webber and Isaías. Patient tolerated procedure well. - Vital Signs stable - X7 days total of urinary catheter to be discontinued on 05/18, per recs from OB. 2. Acute blood loss anemia secondary to PPH - Pt received 9 series of Massive Transfusion Protocol 05/11. Additional uPRBC given 05/13. - Pt vital signs stable. - Will continue to monitor Hgb with serial CBC - Hgb 9.1 and Hct 26.6 on 05/16. 3. Chorioamnioitis, resolved - Pt afebrile - Blood/urine cx-NGTD - Placenta pathology pending - antibiotics discontinued 05/14. 4. DIC - Pt had DIC introperatively. Received 9 series of MTP. - Pt Plts increased to 122. Remaining stable. - No other signs of bleeding or clotting at this time. 5. Hypokalemia - K 2.9 (05/16) - Replace Potassium - Monitor BMP 6. Hypomagnesemia - Replaced Mag IV (05/16) -Recheck in AM 7. Anemia of Diet: Advance diet today as patient tolerates. DVT ppx: SCDs Dispo:continue post care, d/c pending clinical course Addendum - Attending - Attending Attestation Date/Time: 05/16/19 1019 I personally evaluated the patient and discussed the management with Dr. Latham I agree with the History, Examination, Assessment and Plan documented above with any addition or exceptions noted below- Patient tolerating full liquids yesterday. Ambulating in halls. Afebrile VSS. A/P: 1) POD#5 s/p hysterectomy secondary to PPH, POD#3 s/p laparotomy for retained FB - patient progressing well. diet advanced today. Encouraged to continue ambulating. (+) BM. 2) Bladder injury - continue ferguson for 7-10 days.
[2019-05-16] MEDS ORDERED: Magnesium 2 GM/50 ML 2 GM in Premix Bag 1 BAG IVPB SCH (08:15)
--- NOTE | 2019-05-16 08:37 | PDOC.EVN ---
Event Note - Event Note Event Note: Patient does not exhibit any signs of DVT at this time, but because of her having significant risk factors for DVT, a bilateral lower extremity venous doppler was ordered to confirm no LE DVT. Patient is ambulating more and has been on SCD's. Because of hematoma present intrabdominally during surgery, will hold medication ppx at this time.
[2019-05-16] MEDS: Simethicone Chewable 80 MG TAB PO PRN (09:15)
[2019-05-16] MEDS: Senokot S 8.6-50 MG TAB PO SCH ×2 (09:15→21:09)
[2019-05-16] MEDS: Famotidine/PF 20 mg/2ml Vial SLOW IVP SCH ×2 (09:15→21:05)
[2019-05-16] MEDS: Prenatal Vitamin 1 TAB PO SCH (09:15)
--- NOTE | 2019-05-16 09:59 | PRG ---
DATE OF SERVICE: 05/16/2019 SUBJECTIVE: The patient is postoperative day 5 for cervical hysterectomy and postoperative day 3 for reexploration and removal of laparotomy and is status post massive transfusion. The patient yesterday has been ambulating and is starting to tolerate a diet and passing gas. She reports that she is feeling well and has no complaints. OBJECTIVE: VITAL SIGNS: This morning; blood pressure 122/58, temperature 98.6, pulse is 60, respiratory rate of 20, and oxygen saturations 98% on room air. GENERAL: She appears to be in no acute distress. She is alert and oriented, cooperative and pleasant to interact with. ABDOMEN: Soft. Incision is clean, dry, and intact with judy and is vertical midline. EXTREMITIES: The patient has SCDs ordered, to be on when not ambulating. LABORATORY DATA: CBC this morning, white count 7.4, hemoglobin 9.1, hematocrit 26.6, and platelets of 201,000. ASSESSMENT AND PLAN: We will continue postoperative care. Michel is in place for 7 to 10 days postoperatively. Job ID: [id number] [facility]TDD
--- NOTE | 2019-05-16 11:00 | ULT ---
EXAM: Bilateral lower extremity venous duplex: Deep veins evaluated with color Doppler, spectral analysis, and compression. INDICATIONS: Bilateral lower extremity pain and edema. FINDINGS: Deep veins interrogated include common femoral vein, femoral vein, popliteal vein, and post erior tibial vein. These veins show normal compression and blood flow. No evidence of DVT. IMPRESSION: Negative Bilateral venous duplex exam.
[2019-05-16 13:07] LABS: Potassium 3.3 mmol/L (3.5-5.1)
[2019-05-16 14:28] LABS: Actual Bicarbonate (HCO3a) 11.7 mEq/L (22-28); Analyzer IN Cardio OR; Base Excess (BEa) -15.8 mEq/L (-2.0 to +3.0); CO2 Tension 33.6 mmHg (35.0-45.0); Carboxyhemoglobin (COHb) 0.3 gm% (0.0-3.0); Hemoglobin (Hb) 9.8 g/dL (12.0-16.0); Potassium - ABG Lab 5.74 mmol/L (3.70-5.30)
[2019-05-16 14:28] LABS: Actual Bicarbonate (HCO3a) 20.4 mEq/L (22-28); Analyzer IN Cardio OR; CO2 Tension 38.8 mmHg (35.0-45.0); Calcium, Ionized 0.57 mmol/L (1.12-1.30); Carboxyhemoglobin (COHb) 0.3 gm% (0.0-3.0); Hemoglobin (Hb) 7.1 g/dL (12.0-16.0); O2 Tension (PaO2) 461.5 mmHg (80.0-100.0); Potassium - ABG Lab 5.15 mmol/L (3.70-5.30); pH, Arterial 7.34 (7.35-7.45)
[2019-05-16 14:29] LABS: Actual Bicarbonate (HCO3a) 18.3 mEq/L (22-28); Analyzer IN Cardio OR; Base Excess (BEa) -7.9 mEq/L (-2.0 to +3.0); CO2 Tension 40.3 mmHg (35.0-45.0); Calcium, Ionized 0.69 mmol/L (1.12-1.30); Carboxyhemoglobin (COHb) 0.4 gm% (0.0-3.0); Hemoglobin (Hb) 6.8 g/dL (12.0-16.0); O2 Tension (PaO2) 495.4 mmHg (80.0-100.0); Potassium - ABG Lab 6.26 mmol/L (3.70-5.30); pH, Arterial 7.28 (7.35-7.45)
[2019-05-16 14:29] LABS: Actual Bicarbonate (HCO3a) 16.8 mEq/L (22-28); Analyzer IN Cardio OR; Base Excess (BEa) -8.2 mEq/L (-2.0 to +3.0); CO2 Tension 31.7 mmHg (35.0-45.0); Calcium, Ionized 1.06 mmol/L (1.12-1.30); Carboxyhemoglobin (COHb) 0.7 gm% (0.0-3.0); Hemoglobin (Hb) 7.9 g/dL (12.0-16.0); O2 Tension (PaO2) 490.4 mmHg (80.0-100.0); Potassium - ABG Lab 4.43 mmol/L (3.70-5.30); pH, Arterial 7.34 (7.35-7.45)
[2019-05-16 14:29] LABS: Actual Bicarbonate (HCO3a) 16.2 mEq/L (22-28); Analyzer IN Cardio OR; CO2 Tension 27.3 mmHg (35.0-45.0); Calcium, Ionized 1.07 mmol/L (1.12-1.30); Carboxyhemoglobin (COHb) 0.8 gm% (0.0-3.0); O2 Tension (PaO2) 472.9 mmHg (80.0-100.0); Potassium - ABG Lab 4.84 mmol/L (3.70-5.30); pH, Arterial 7.39 (7.35-7.45)
[2019-05-16 14:30] LABS: Puncture Site ALINE; pH, Arterial 7.16 (7.35-7.45)
[2019-05-16 14:31] LABS: Puncture Site ALINE
[2019-05-16 14:31] LABS: Puncture Site ALINE
[2019-05-16 14:32] LABS: Puncture Site ALINE
[2019-05-16 14:32] LABS: Puncture Site ALINE
[2019-05-16 14:33] LABS: Analyzer IN Cardio OR; Base Excess (BEa) -3.9 mEq/L (-2.0 to +3.0); CO2 Tension 31.7 mmHg (35.0-45.0); Calcium, Ionized 1.01 mmol/L (1.12-1.30); Carboxyhemoglobin (COHb) 0.3 gm% (0.0-3.0); Hemoglobin (Hb) 8.6 g/dL (12.0-16.0); O2 Tension (PaO2) 486.4 mmHg (80.0-100.0); pH, Arterial 7.42 (7.35-7.45)
[2019-05-16 14:33] LABS: Actual Bicarbonate (HCO3a) 16.6 mEq/L (22-28); Analyzer IN Cardio OR; CO2 Tension 30.8 mmHg (35.0-45.0); Calcium, Ionized 0.82 mmol/L (1.12-1.30); Carboxyhemoglobin (COHb) 0.3 gm% (0.0-3.0); Hemoglobin (Hb) 9.3 g/dL (12.0-16.0); O2 Tension (PaO2) 491.4 mmHg (80.0-100.0); Potassium - ABG Lab 3.69 mmol/L (3.70-5.30); pH, Arterial 7.35 (7.35-7.45)
[2019-05-16 14:33] LABS: Actual Bicarbonate (HCO3a) 23.3 mEq/L (22-28); Analyzer IN Cardio OR; Base Excess (BEa) -0.3 mEq/L (-2.0 to +3.0); CO2 Tension 33.8 mmHg (35.0-45.0); Calcium, Ionized 1.15 mmol/L (1.12-1.30); Carboxyhemoglobin (COHb) 0.3 gm% (0.0-3.0); Hemoglobin (Hb) 8.9 g/dL (12.0-16.0); Potassium - ABG Lab 2.94 mmol/L (3.70-5.30); pH, Arterial 7.46 (7.35-7.45)
[2019-05-16 14:34] LABS: Puncture Site ALINE
[2019-05-16 14:34] LABS: Puncture Site ALINE
[2019-05-16 14:35] LABS: O2 Tension (PaO2) 509.8 mmHg (80.0-100.0); Puncture Site ALINE
[2019-05-17] MEDS: HYDROcodone/Acetaminophen 5/325 mg Tablet PO PRN ×2 (02:28→09:23)
[2019-05-17 05:51] LABS: Hemoglobin 9.1 g/dL (12.0-16.0); Mean Corpuscular HGB CONC 33.8 g/dL (32.0-36.0); Mean Corpuscular Hemoglobin 30.5 pg (27.0-31.0); Mean Corpuscular Volume 90.2 fL (78.0-98.0); Mean Platelet Volume 7.7 fL (7.4-10.4); Platelet Count 225 thou/uL (130-400); RBC Distribution Width 13.8 % (11.5-14.5); Red Blood Cell (RBC) Count 2.99 mill/uL (4.20-5.40); White Blood Cell (WBC) Count 7.1 thou/uL (4.8-10.8)
[2019-05-17 06:08] LABS: Anion Gap 11 mmol/L (10-20); BUN (Urea Nitrogen) 6 mg/dL (7.0-18.7); Calc. Creatinine Clearance 155 mL/min (70-130); Calcium 8.2 mg/dL (7.8-10.44); Carbon Dioxide 22 mmol/L (22-29); Chloride 108 mmol/L (98-107); Estimated GFR-MDRD Greater than 90; Glucose 90 mg/dL (70-105); Magnesium 1.6 mg/dL (1.6-2.6); Potassium 3.4 mmol/L (3.5-5.1); Sodium 138 mmol/L (136-145)
--- NOTE | 2019-05-17 06:35 | PDOC.PP ---
Post Progress Note Post Day #: 6 Subjective: Patient is up, walking around the room when I saw her this morning. She denies any new symptoms, and states she had a BM yesterday 05/16 and is passing flatus. Patient voices that she feel comfortable to go home. Patient denies any chest pain, shortness of breath, or lower extremity pain. PO intake tolerated: yes Flatus: yes Ambulation: yes Vital Signs (12 hours) Temp Pulse Resp BP BP Pulse Ox 05/17/19 04:00 98.2 F 57 L 17 124/57 L 05/17/19 00:00 98.1 F 64 17 110/56 L 05/16/19 20:00 98.2 F 62 17 108/51 L 98 05/16/19 19:59 98.3 F 62 13 114/61 99 Weight Weight 67 kg Most Recent Monitor Data Heart Rate from ECG 46 NIBP 111/68 NIBP BP-Mean 82 Respiration from ECG 16 SpO2 93 - Physical Examination General: NAD Cardiovascular: no m/r/g, RRR Respiratory: clear to auscultation bilaterally, non-labored breathing Abdominal: + bowel sounds, lochia, appropriately TTP (Less tender to palpation than previous exams. Soft, and non-distended abdomen.) Deviation from normal: surgical judy present Extremities: negative homans (B) Skin: CS incision dry & intact Neurological: no gross focal deficits Psychiatric: A&Ox3, normal affect Result Diagrams: 05/17/19 05:38 05/17/19 05:38 Additional Labs: Post Labs Blood Type O POSITIVE 05/11/19 05:36 Hep Bs Antigen Non-Reactive S/CO (NonReactive) 05/11/19 03:47 (1) DIC (disseminated intravascular coagulation) Code(s): D65 - DISSEMINATED INTRAVASCULAR COAGULATION Status: Acute (2) Low-lying placenta Code(s): O44.40 - LOW LYING PLACENTA NOS OR WITHOUT HEMORRHAGE, UNSP TRIMESTER Status: Resolved (3) hemorrhage Code(s): O72.1 - OTHER IMMEDIATE HEMORRHAGE Status: Resolved Qualifiers: hemorrhage type: coagulation defects Qualified Code(s): O72.3 - coagulation defects (4) Term Code(s): Z34.90 - ENCNTR FOR SUPRVSN OF NORMAL , UNSP, UNSP TRIMESTER Status: Resolved (5) Chorioamnionitis Code(s): O41.1290 - CHORIOAMNIONITIS, UNSP TRIMESTER, NOT APPLICABLE OR UNSP Status: Resolved Qualifiers: Fetus number: single or unspecified fetus (6) Acute blood loss anemia Code(s): D62 - ACUTE POSTHEMORRHAGIC ANEMIA Status: Acute - Assessment/Plan 28 year old at 39.5 wks delivered SIMA Nixon via on 05/11 @ 0442. Pt then had massive PPH and was taken to OR for total hysterectomy after failing medication and Bakri management. There was a small hole in the bladder that was repaired. Patient was taken back to the OR on 05/13 for retained surgical laparotomy rag that was then removed. Patient was intubated in the ICU. She is now in care, extubated and recovering appropriately. 1. Post Day 6 - Pt pain controlled with [place] and Tylenol. No motrin because risk of hematoma bleeding intrabdominally. - Patient tolerated PO regular diet, and Po pain medications throughout 05/16. - Patient ambulated hallways the past X2 days - Pulmonology consulted- Dr. Dunbar follow recs, Pt extubated 05/12 - Vessel Scrapper Helper consulted- Laborists, follow recs. Laparotomy sponge removed in the OR on 05/[address] Webber and Isaías. Patient tolerated procedure well. - Vital Signs stable - X7 days total of urinary catheter to be discontinued after 7-10 days, per recs from OB. - LE US negative for DVT. 2. Acute blood loss anemia secondary to PPH - Pt received 9 series of Massive Transfusion Protocol 05/11. Additional uPRBC given 05/13. - Pt vital signs stable. - Hgb 9.1 and Hct 26.9 on 05/17. 3. Chorioamnioitis, resolved - Pt afebrile - Blood/urine cx-NGTD - Placenta pathology pending consultation with placenta expert. - antibiotics discontinued 05/14. 4. DIC - Pt had DIC introperatively. Received 9 series of MTP. - Pt Plts increased to 225 - No other signs of bleeding or clotting at this time. 5. Hypokalemia - K 2.9 (05/16), 3.4 (05/17): improving - Patient now eating, this will likely correct the hypokalemia - Monitor BMP 6. Hypomagnesemia - Replaced Mag IV (05/16) -Mag level 1.2 (05/16), 1.6 (05/17) 7. Anemia of Diet: Regular diet. DVT ppx: SCDs and ambulation Dispo:continue post care, d/c today. Discussed with Dr. Wan, who agrees with discharge plan today. Addendum - Attending - Attending Attestation Date/Time: 05/17/19 3571 I personally evaluated the patient and discussed the management with Dr. Latham I agree with the History, Examination, Assessment and Plan documented above with any addition or exceptions noted below - [id number] without complaints. Tolerating regular diet. Ambulating in halls. Afebrile VSS. A/P: 1) POD#6 s/p hysterectomy for massive hemorrhage, POD#4 s/p ex-lap for retained FB - recovering well. Plan to d/c home today. 2) Bladder injury- continue ferguson for 10 days. F/U scheduled for Wednesday.
--- NOTE | 2019-05-17 07:46 | PDOC.EVN ---
Event Note - Event Note Event Note: Day of Discharge OBGYN I have reviewed the course of events. The resident nurse transitional and the primary FM team has elected to discharge her home today. I agree that the patient is clear for discharge. Bilateral LE doppler (screening) was negative yesterday. has Follow up
[2019-05-17] MEDS: Senokot S 8.6-50 MG TAB PO SCH (09:22)
[2019-05-17] MEDS: Prenatal Vitamin 1 TAB PO SCH (09:22)
[2019-05-17] MEDS: Famotidine/PF 20 mg/2ml Vial SLOW IVP SCH (09:22)
[2019-05-17] MEDS ORDERED: Sodium Chloride 0.9% 10 ML ONE (09:28)
--- NOTE | 2019-05-17 10:28 | PDOC.EVN ---
Event Note - Event Note Event Note: OB Note Pt to be d/c today. Meeting all requirements fo discharge. Examined by me. Recommended staple removal POD 10and also cystogram to be completed on POD 10 prior to removal of ferguson. Primary team to arrange. Pt will have appt with me in 5-6 weeks for final post op appt and has appt scheduled with [facility] for routine post op appts prior to this.
[2019-05-17 11:13] VITALS: BP 116/56; TEMP 98.9
--- NOTE | 2019-05-18 12:33 | DIS ---
DATE OF ADMISSION: 05/11/2019 DATE OF DISCHARGE: 05/17/2019 ADMITTING ATTENDING: Dr. Mayfield DISCHARGE ATTENDING: Dr. 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 Cleveland hand laminator, [employer]; Pulm/Crit- Dr. Alycia Dunbar PROCEDURES: 1. Vaginal after . 05/11 2. Exploratory laparotomy. 05/11 3. total abdominal hysterectomy. 05/11 4. Bladder injury repair. 05/11 5. Massive transfusion of blood products x9. 05/11 6. Intubated 05/11 7. Right IJ 05/11 8. 2nd Degree Laceration Repair 05/11 9. Extubated 05/12 10. Opening of prior exploratory laparotomy for removal of foreign body, laparotomy sponge, and abdominal washout. 05/13 DIAGNOSES: 1. Term intrauterine , delivery via Vaginal after . 2. Low-lying placenta. 3. Possible Placenta Accreta 4. Anemia of . 5. Intraamniotic infection. 6. hemorrhage. 7. Status post total hysterectomy. 8. Disseminated intravascular coagulation. 9. Intraoperative bladder injury. 10. Intraabdominal hematoma. 11. Hemorrhagic Shock 12. Acute blood loss anemia. 13. care. DISCHARGE MEDICATIONS: 1. Docusate 100 mg p.o. b.i.d. for 30 days. 2. Ferrous sulfate 325 mg p.o. daily for 30 days. 3. Zofran 4 mg p.o. q.4 hours p.r.n. 4. vitamin 1 tablet daily for 30 days. 5. Jackpot 5/325 q.4 hours p.r.n. for pain. DISCONTINUED MEDICATIONS: None. HPI/HOSPITAL COURSE: The patient is a 28-year-old, G4, P2-0-1-2 at 39.5 weeks dated by a 12.6 week sonogram, who presented with contractions on 05/11/2019. She was scheduled for an EIOL for TOLAC that morning, but she presented in labor. The patient has a history of having a low-lying placenta on this , 1.1 cm from the cervical OS, but not visualized completely. The patient was counseled extensively on the risk of TOLAC and the medical necessity of , particularly with this low-lying placenta and prior history of . The patient was adamant to have the TOLAC and strongly desired to not go for . The patient delivered via vaginal delivery after , at 04:42 on 05/11. There was a second-degree laceration, which was packed. The patient then developed hemorrhage. This patient failed standard hemorrhage drug therapy as well as Bakri balloon placement. Decision was made to take the patient to the OR for a PPH. The patient developed DIC requiring massive transfusion protocol x9, receiving a total of 28 RBC, 3 liquid plasma, 24 FFP, 5 platelets, and 8 cryoprecipitate bags throughout her hospital course. The patient underwent a total hysterectomy while in the OR. A bladder injury was sustained and repaired. The 2nd degree laceration of the vagina was repaired once the patient was stabilized. The patient remained intubated, was started on pressors and was admitted to the ICU for further care. Dr. Dunbar, shellfish sorter cared for patient while in the ICU. On 05/12, she was extubated. On 05/13, the patient was taken back to the OR for exploratory laparotomy to remove a foreign body, which was a surgical lap left in at the first surgery. The patient tolerated procedure well. The patient was brought back to floor with recommendations from hand laminator consult for a total of 7 to 10 days for the Michel urinary catheter to remain in place because of the bladder injury. The patient's hemoglobin continued to rise and remained stable once on . Hgb 9.1 at discharge. The patient slowly advanced activity and diet as she was healing. By the time she left the hospital, she was able to walk up and down the hallway several times, eating most of her meals, drinking fluids on her own and having regular bowel movement as well as passing gas. On 05/17/2019, the patient agreed with the plan to go home and felt safe in doing so. The patient was discharged to have close followup. The patient will be seen in clinic on May 22. The patient will also undergo a cystogram the morning of May 22 to evaluate healing of the bladder injury and any further need for Michel catheter placement. If the cystogram is normal, removal of Michel catheter will be appropriate at that time. The patient will need to follow up with Dr. Webber, 4 to 6 weeks from now. Please refer to op notes for extensive detail on procedures. DISPOSITION: The patient was stable upon discharge with a stable hemoglobin, having bowel movements, and able to ambulate up and down the hallway. Patient voiced the understanding that close follow up will be necessary. She and family agreed with the plan to be discharged home with close follow up. DISCHARGE INSTRUCTIONS: 1. Location: Home. 2. Diet: Regular. 3. Activity: As tolerated. 4. Followup: Wednesday, May 22 with clinic; May 22 for an outpatient cystogram at [facility] and [address] Webber, FUTURES TRADER. Job ID: [id number] MTDD
== END 2019-05-17 13:20 | disposition home or self-care (01) | DRG 768 ==
LOC: L&D 03:02 → CCU 11:02 → 3SW 05-14 14:31
PROVIDERS: ADMIT Family Medicine; ATTEND Family Medicine
PROC: 10E0XZZ Delivery of Products of Conception, External Approach (ICD-10-PCS; principal; 2019-05-11)
PROC: 0UT90ZZ Resection of Uterus, Open Approach (ICD-10-PCS; 2019-05-11)
PROC: 0UT20ZZ Resection of Bilateral Ovaries, Open Approach (ICD-10-PCS; 2019-05-11)
PROC: 0KQM0ZZ Repair Perineum Muscle, Open Approach (ICD-10-PCS; 2019-05-11)
PROC: 0UT70ZZ Resection of Bilateral Fallopian Tubes, Open Approach (ICD-10-PCS; 2019-05-11)
PROC: 0TQB0ZZ Repair Bladder, Open Approach (ICD-10-PCS; 2019-05-11)
PROC: 30233L1 Transfusion of Nonautologous Fresh Plasma into Peripheral Vein, Percutaneous Approach (ICD-10-PCS; 2019-05-11)
PROC: 30233N1 Transfusion of Nonautologous Red Blood Cells into Peripheral Vein, Percutaneous Approach (ICD-10-PCS; 2019-05-11)
PROC: 30233R1 Transfusion of Nonautologous Platelets into Peripheral Vein, Percutaneous Approach (ICD-10-PCS; 2019-05-11)
PROC: 30233M1 Transfusion of Nonautologous Plasma Cryoprecipitate into Peripheral Vein, Percutaneous Approach (ICD-10-PCS; 2019-05-11)
PROC: 30233K1 Transfusion of Nonautologous Frozen Plasma into Peripheral Vein, Percutaneous Approach (ICD-10-PCS; 2019-05-11)
PROC: 0WCG0ZZ Extirpation of Matter from Peritoneal Cavity, Open Approach (ICD-10-PCS; 2019-05-13)
DX: O44.43 Low lying placenta NOS or without hemorrhage, third trimester (principal); Z37.0 Single live birth; T81.508A Unspecified complication of foreign body accidentally left in body following other procedure, initial encounter; O75.1 Shock during or following labor and delivery; O41.1230 Chorioamnionitis, third trimester, not applicable or unspecified; K66.1 Hemoperitoneum; O72.1 Other immediate postpartum hemorrhage; D62 Acute posthemorrhagic anemia; N99.72 Accidental puncture and laceration of a genitourinary system organ or structure during other procedure; O43.213 Placenta accreta, third trimester; O99.02 Anemia complicating childbirth; O34.211 Maternal care for low transverse scar from previous cesarean delivery; D50.9 Iron deficiency anemia, unspecified; Z3A.39 39 weeks gestation of pregnancy; O70.1 Second degree perineal laceration during delivery; O72.3 Postpartum coagulation defects; O90.89 Other complications of the puerperium, not elsewhere classified; Y65.8 Other specified misadventures during surgical and medical care; Y92.234 Operating room of hospital as the place of occurrence of the external cause; O99.285 Endocrine, nutritional and metabolic diseases complicating the puerperium; D69.6 Thrombocytopenia, unspecified; E87.6 Hypokalemia; E83.42 Hypomagnesemia
CPT/HCPCS: 36415; 36416; 36430; 51701; 51702; 71045; 74018; 74178; 80048; 80053; 81001; 82805; 83605; 83735; 84145; 85007; 85025; 85027; 85379; 85384; 85610; 85730; 86780; 86850; 86900; 86901; 87040; 87086; 87340; 88300; 88307; 93970; 94002; 94003; J0131; J0456; J0690; J1100; J1815; J2001; J2175; J2210; J2270; J2370; J2405; J2543; J2590; J2704; J3010; J3475; J3480; J3490; J7050; J7189; P9012; P9016; P9035; P9048; P9059; Q9966; Q9968; S0028

== ENCOUNTER 2019-05-22 08:30 | Outpatient (CLI) | payer SELFPAY ==
--- NOTE | 2019-05-22 10:40 | RAD ---
Exam: Cystogram: HISTORY: Bladder injury Dose 13.276 negrete centimeters squared. Fluoroscopy time 0.5 minutes Michel catheter was introduced in the bladder. Approximately 200 cc of iodinated contrast media was in troduced in the bladder. No evidence for vesicoureteral reflux. No evidence for extravasation. Post drainage study demonstrates near-total emptying. IMPRESSION: Unremarkable cystogram. No evidence for extravasation or leak.
[2019-05-22] MEDS ORDERED: ISOVUE-370 76%-LOCM 1 ML ONE (14:41)
== END 2019-05-22 08:31 | disposition home or self-care (01) ==
LOC: RAD 08:30
PROVIDERS: ATTEND Family Medicine
DX: S37.20XA Unspecified injury of bladder, initial encounter (principal)
CPT/HCPCS: 51600; 74430; Q9966